=== PATIENT | female | born 1940 | race Caucasian/White ===

== ENCOUNTER 2019-12-14 09:25 | Emergency (ER) | payer MEDICARE ==
[~2019-12-14] VITALS: Ht 160 cm; Wt 72.6 kg
--- NOTE | 2019-12-14 09:51 | NUR ---
[facility] called to request transport for patient back to [facility] in [place], ETA 35-45 mins
--- OUTSIDE RECORDS SUMMARY | 2019-12-14 09:53 | XMS REPORT | Clinical Summary ---
Author Author [facility] Organization [facility] Address Unknown Phone Unavailable Care Team Providers Care Charging Plug Placer Name Role Phone Thor Gold MD PCP Allergies Comments Active Allergy Reactions Severity Noted Date Patient cannot recall allergy from 30 years ago Aspirin Unknown 10/21/2019 Reaction Fluticasone Unknown 10/21/2019 Furoate-Vilanterol Reaction Lisinopril Unknown 10/19/2019 Reaction Morphine GI 10/19/2019 Intolerance Phenobarbital Unknown 10/21/2019 Reaction Medications End Date Status Medication Sig Dispensed Refills Start Date Active metoprolol tartrate Take 50 mg by 0 (LOPRESSOR) 50 mg tablet mouth daily. Active montelukast (SINGULAIR) Take 10 mg by 0 10 mg tablet mouth nightly. Active omeprazole (PriLOSEC) 20 Take 20 mg by 0 MG capsule mouth 2 (two) times a day. Active traZODone (DESYREL) 50 MG Take 50 mg by 0 tablet mouth nightly. Active theophylline (TEDDY-24) Take 400 mg 0 100 MG 24 hr capsule by mouth daily. Active fluticasone Inhale 1 puff 0 propion-salmeteroL 2 (two) times (ADVAIR/ WIXELA INHUB) a day. 500-50 mcg/dose DISKUS Active tiotropium (SPIRIVA) 18 Place 1 0 mcg per inhalation capsule into capsule inhaler and inhale once daily. Active rivaroxaban (XARELTO) 10 Take 20 mg by 0 mg tablet mouth daily. Active hydroCHLOROthiazide Take 12.5 mg 0 (HYDRODIURIL) 12.5 MG by mouth tablet daily. 10/24/2019 Discontinued (Stop Taking at Discharge) predniSONE (DELTASONE) 5 Take 5 mg by 0 mg tablet mouth daily. 10/21/2019 Discontinued furosemide (LASIX) 20 mg Take 20 mg by 0 tablet mouth 2 (two) times a day. 10/21/2019 Discontinued potassium chloride Take 10 mEq 0 (K-DUR) 10 MEQ CR tablet by mouth 2 (two) times a day. 10/24/2019 Discontinued (Stop Taking at Discharge) albuterol (ACCUNEB) 2.5 Take 2.5 mg 0 mg /3 mL (0.083 %) by nebulizer solution nebulization every 4 (four) hours as needed for wheezing. 11/24/2019 furosemide (LASIX) 40 mg Take 1 tablet 30 tablet 0 tablet (40 mg total) 0 by mouth daily for 30 days. 11/23/2019 potassium chloride Take 1 60 capsule 0 02 (MICRO-K) 10 MEQ CR capsule (10 0 capsule mEq total) by mouth 2 (two) times a day for 30 days. 11/23/2019 benzonatate (TESSALON) Take 1 0 02 100 MG capsule capsule (100 0 mg total) by mouth every 6 (six) hours as needed for cough for up to 30 days. 11/24/2019 buPROPion XL (WELLBUTRIN Take 1 tablet 30 tablet 0 XL) 150 MG 24 hr tablet (150 mg 0 total) by mouth daily for 30 days. 11/23/2019 bisacodyL (DULCOLAX) 10 Insert 1 0 mg suppository suppository 0 (10 mg total) into the rectum daily as needed for constipation ((if with persistent constipation) ) for up to 30 days. 11/23/2019 ipratropium-albuteroL Take 3 mL by 0 10/24/19 2 (DUO-NEB) 0.5-2.5 mg/3 mL nebulization 0 nebulizer every 4 (four) hours as needed for wheezing for up to 30 days. 11/24/2019 losartan (COZAAR) 25 MG Take 1 tablet 30 tablet 0 tablet (25 mg total) 0 by mouth daily for 30 days. 11/23/2019 magnesium oxide (MAG-OX) Take 1 tablet 60 tablet 0 400 mg (241.3 mg (400 mg 0 magnesium) tablet total) by mouth 2 (two) times a day for 30 days. 11/23/2019 insulin GLARGINE (LANTUS) Inject 10 3 mL 0 100 unit/mL injection Units under 0 (vial) the skin nightly for 30 days. 11/23/2019 aspirin (ECOTRIN) 81 MG Take 1 tablet 30 tablet 0 enteric coated tablet (81 mg total) 0 by mouth daily for 30 days. 10/29/2019 methylPREDNISolone follow 21 tablet 0 02 (Medrol, Junito,) 4 mg package 0 tablet directions 11/30/2019 predniSONE (DELTASONE) 5 Take 1 tablet 30 tablet 0 mg tablet (5 mg total) 0 by mouth daily for 30 days. Active Problems Problem Noted Date Dehydration 10/20/2019 Tobacco dependence 10/20/2019 COPD with acute exacerbation 10/20/2019 Hypomagnesemia 10/20/2019 Hypotension 10/20/2019 Social problem 10/20/2019 Tachycardia 10/20/2019 Dyspnea 10/19/2019 Chest pain 10/19/2019 Encounters Care Team Description Date Type Specialty Bacilio Garcia MD Yerramadha, Muralidhar Reddy, MD COPD with acute exacerbation (HCC) (Prim grupo Dx); Dyspnea, unspecified type; Chronic obstructive pulmonary disease, unspecified COPD type (HCC); Social problem; Chest pain, unspecified type; Hypomagnesemia; Tobacco dependence; Dehydration; Hypotension, unspecified hypotension type; Tachycardia 10/19/2019 [facility] General Surgery - Encounter 10/24/2019 10/19/2019 Travel after 12/13/2018 Surgical History Surgery Date Site/Laterality Comments ABDOMINAL SURGERY APPENDECTOMY CHOLECYSTECTOMY Medical History Medical History Date Comments COPD (chronic obstructive pulmonary disease) (HCC) Asthma Diabetes mellitus (HCC) Hypertension Deep vein thrombosis (HCC) Social History Date Tobacco Use Types Packs/Day Years Used Current Every Day Smoker Cigarettes 1 Smokeless Tobacco: Never Used Drinks/Week oz/Week Comments Alcohol Use Not Currently Sex Assigned at Date Recorded Not on file Last Filed Vital Signs Reading Time Taken Comments Vital Sign 116/57 10/24/2019 4:45 PM CDT Blood Pressure 80 10/24/2019 7:42 PM CDT Pulse 36.6 C (97.8 F) 10/24/2019 4:45 PM CDT Temperature 16 10/24/2019 7:42 PM CDT Respiratory Rate 98% 10/24/2019 4:45 PM CDT Oxygen Saturation - - Inhaled Oxygen Concentration 45.4 kg (100 lb) 10/20/2019 12:00 AM CDT Weight 152.4 cm (5') 10/20/2019 12:00 AM CDT Height 19.53 10/20/2019 12:00 AM CDT Body Mass Index Plan of Treatment Health Maintenance Due Date Last Done Comments SHINGLES VACCINES (#1) 1992 65+ PNEUMOCOCCAL VACCINE 09/13/2007 (1 of 1 - PPSV23) INFLUENZA VACCINE 09/24/2019 Procedures Comments Procedure Name Priority Date/Time Associated Diag nosis POC GLUCOSE Routine 10/24/2019 4:45 PM CDT POC GLUCOSE Routine 10/24/2019 12:04 PM CDT POC GLUCOSE Routine 10/24/2019 6:20 AM CDT POC GLUCOSE Routine 10/23/2019 8:35 PM CDT POC GLUCOSE Routine 10/23/2019 4:18 PM CDT POC GLUCOSE Routine 10/23/2019 11:31 AM CDT POC GLUCOSE Routine 10/23/2019 7:16 AM CDT POC GLUCOSE Routine 10/23/2019 6:30 AM CDT ESTIMATED GFR Routine 10/23/2019 5:00 AM CDT BASIC METABOLIC PANEL Routine 10/23/2019 5:00 AM CDT POC GLUCOSE Routine 10/22/2019 8:40 PM CDT POC GLUCOSE Routine 10/22/2019 5:38 PM CDT POC GLUCOSE Routine 10/22/2019 12:27 PM CDT POC GLUCOSE Routine 10/22/2019 7:03 AM CDT POC GLUCOSE Routine 10/21/2019 9:00 PM CDT COVID-19 QUALITATIVE PCR Routine 10/21/2019 6:50 PM CDT POC GLUCOSE Routine 10/21/2019 5:35 PM CDT POC GLUCOSE Routine 10/21/2019 11:38 AM CDT POC GLUCOSE Routine 10/21/2019 5:49 AM CDT ESTIMATED GFR Routine 10/21/2019 4:58 AM CDT THYROID STIMULATING Routine 10/21/2019 HORMONE 4:58 AM CDT MAGNESIUM LEVEL Routine 10/21/2019 4:58 AM CDT BASIC METABOLIC PANEL Routine 10/21/2019 4:58 AM CDT POC GLUCOSE Routine 10/20/2019 9:01 PM CDT POC GLUCOSE Routine 10/20/2019 4:50 PM CDT TTE COMPLETE, WO Routine 10/20/2019 CONTRAST, W DOPPLER 2:50 PM CDT ([id number]) URINE CULTURE Routine 10/20/2019 2:24 PM CDT URINALYSIS SCREEN AND Routine 10/20/2019 MICROSCOPY, WITH REFLEX 2:23 PM CDT TO CULTURE POC GLUCOSE Routine 10/20/2019 10:37 AM CDT HEMOGLOBIN A1C Routine 10/20/2019 4:52 AM CDT MAGNESIUM LEVEL Routine 10/20/2019 4:52 AM CDT ESTIMATED GFR Routine 10/20/2019 4:52 AM CDT LIPID PANEL Routine 10/20/2019 4:52 AM CDT COMPREHENSIVE METABOLIC Routine 10/20/2019 PANEL 4:52 AM CDT HC COMPLETE BLD COUNT Routine 10/20/2019 W/AUTO DIFF 4:52 AM CDT LACTIC ACID LEVEL, SEPSIS Timed 10/19/2019 - NOW AND REPEAT 2X EVERY 11:40 PM CDT 3 HOURS TROPONIN Timed 10/19/2019 11:39 PM CDT TROPONIN Timed 10/19/2019 9:47 PM CDT BLOOD CULTURE, AEROBIC & Routine 10/19/2019 ANAEROBIC 8:45 PM CDT LACTIC ACID LEVEL, SEPSIS Timed 10/19/2019 - NOW AND REPEAT 2X EVERY 8:15 PM CDT 3 HOURS BLOOD CULTURE, AEROBIC & Routine 10/19/2019 ANAEROBIC 8:15 PM CDT XR CHEST 1 VW PORTABLE STAT 10/19/2019 6:51 PM CDT ESTIMATED GFR STAT 10/19/2019 6:49 PM CDT CREATINE KINASE, TOTAL STAT 10/19/2019 (CPK) 6:49 PM CDT TROPONIN STAT 10/19/2019 6:49 PM CDT B NATRIURETIC PEPTIDE STAT 10/19/2019 6:49 PM CDT MAGNESIUM LEVEL STAT 10/19/2019 6:49 PM CDT PHOSPHORUS LEVEL STAT 10/19/2019 6:49 PM CDT COMPREHENSIVE METABOLIC STAT 10/19/2019 PANEL 6:49 PM CDT PARTIAL THROMBOPLASTIN STAT 10/19/2019 TIME (PTT) 6:49 PM CDT PROTHROMBIN TIME WITH INR STAT 10/19/2019 6:49 PM CDT HC COMPLETE BLD COUNT STAT 10/19/2019 W/AUTO DIFF 6:49 PM CDT ECG 12-LEAD STAT 10/19/2019 6:40 PM CDT ECG ED PRELIMINARY Routine 10/19/2019 INTERPRETATION 6:38 PM CDT after 12/13/2018 Results * POC glucose (10/24/2019 4:45 PM CDT) Only the most recent of 19 results within the time period is included. [facility] POC glucose 184 (H) 65 - 99 mg/dL [place] Comment: AMINA SAUCEDA Computer Aided Design Operator Name: [facility] Device ID: [id number] Specimen Blood Performing Organization Address [facility] P jose Number [facility] DEPARTMENT [address] [place] [address] PATHOLOGY AND [address] * Estimated GFR (10/23/2019 5:00 AM CDT) Only the most recent of 4 results within the time period is included. [facility] Estimated GFR 88 mL/min/1.73 m2 [place] Comment: AMINA SAUCEDA [facility] Interpretation G1 >=90 Normal or high G2 60-89 Mildly decreased G3a 45-59 Mildly to moderately decreased G3b 30-44 Moderately to severely decreased G4 15-29 Severely decreased G5 <15 Kidney failure The eGFR was calculated using the Chronic Kidney Disease Epidemiology Collaboration (CKD-EPI) equation. Interpretation is based on recommendations of the National Kidney Foundation-Kidney Disease Outcomes Quality Initiative (NKF-KDOQI) published in 2014. Specimen Performing Organization Address [facility] P jose Number [address] [place] [address] PATHOLOGY AND [address] * Basic metabolic panel (10/23/2019 5:00 AM CDT) Only the most recent of 2 results within the time period is included. [facility] Sodium 137 135 - 148 mEq/L [facility] Potassium 4.5 3.5 - 5.0 mEq/L [facility] Chloride 96 (L) 98 - 112 mEq/L [facility] CO2 35 (H) 24 - 31 mEq/L [facility] Anion gap 6@ANIO (L) 7 - 15 mEq/L [facility] BUN 21 8 - 23 mg/dL [facility] Creatinine 0.60 0.50 - 0.90 mg/dL [facility] Glucose 189 (H) 65 - 99 mg/dL [facility] Calcium 9.9 8.8 - 10.2 mg/dL [facility] Specimen Blood Performing Organization Address City/[facility]/ZIP [facility] P jose Number [facility] DEPARTMENT OF [address] [place] [address]. [place] [phone] PATHOLOGY AND GENOMIC MEDICINE [address] * COVID-19 qualitative PCR (10/21/2019 6:50 PM CDT) Interpretation Negative results do not REESE preclude 2019-nCoV infection [facility] and should not be used as the HOSPITAL sole basis for treatment or other patient management decisions. Negative results must be combined with clinical observations, patient history, and epidemiological information. COVID-19 Not-Detected Not-Detected [facility] qualitative PCR [facility] result [facility]OSPITAL COVID-19 See link below for PDF Lab [facility] qualitative PCR ReportComment: Case Number: [facility] [id number] [facility] Specimen Nasopharyngeal swab Performing Organization Address City/[facility] P jose Number [facility] DEPARTMENT OF [address] [place] [address] PATHOLOGY AND GENOMIC MEDICINE [address] * Thyroid stimulating hormone (10/21/2019 4:58 AM CDT) TSH 2.97 0.27 - 4.20 uIU/mL [facility] Specimen Blood Performing Organization Address City/[facility] P jose Number [facility] DEPARTMENT OF [address] [place] [address]. [place] [phone] PATHOLOGY AND GENOMIC MEDICINE [address] [place] [address] * Magnesium level (10/21/2019 4:58 AM CDT) Only the most recent of 3 results within the time period is included. Magnesium 1.6 1.6 - 2.4 mg/dL [facility] Specimen Blood Performing Organization Address City/[facility]/ZIP [facility] P jose Number [facility] DEPARTMENT OF [address] [place] [address]. [place] [phone] PATHOLOGY AND GENOMIC MEDICINE [address] [place] [address] [facility] * Transthoracic Echocardiogram Complete, (w Contrast, Strain and 3D if needed) (10/20/2019 2:50 PM CDT) Velocity Ratio 0.35 m/s [facility] (V1/V2) IVS,d 1.32 cm [facility] EF 72.32 % [facility] LVPWD,d 1.35 cm [facility] AoV Mean PG 19.77 mmHg [facility] AV LVOT peak 4.26 mmHg [facility] gradient MV valve area p 3.81 cm2 [facility] 1/2 method E/A ratio 0.86 [facility] E wave 207.24 msec [facility] decelartion time LVOT Diam,S 1.95 cm [facility] LVOT area 2.98 cm2 [facility] LVOT Vmax 1.03 m/s [facility] LVOT VTI 0.27 m [facility] AoV Peak PG 34.84 mmHg [facility] MV Peak E Jose Miguel 1.09 m/s [facility] MV stenosis 57.81 ms [facility] pressure 1/2 time MV Peak A Jose Miguel 1.27 m/s [facility] LV Vol,s A2C 15.74 mL [facility] LV Vol,d A2C 59.69 mL [facility] LA Volume Index 28.83 mL/m2 [facility] AoV Area, Vmax 1.09 cm2 [facility] AoV Area, VTI 1.22 cm2 [facility] AoV Vmax 2.95 m/s [facility] LV,d 3.14 cm [facility] LV,s 1.88 cm [facility] LV Vol,d A4C 63.37 ml [facility] LV Vol,s A4C 21.22 ml [facility] TR Vpeak 2.48 mm/s [facility] MV E A ratio 0.86 [facility] RA pressure 5.00 mmHg [facility] TR pk grad 24.64 mmHg [facility] LA Vol 4C 28.00 ml [facility] RVSP 29.64 mmHg [facility] LV SYS VOL 10.83 ml [facility] LV GARIBAY VOL 39.13 ml [facility] LA diam s 3.70 cm [facility] LA area s A4C 13.32 cm2 [facility] LA Vol MOD A4C 28.21 ml [facility] LV SV Teich 2D 28.30 ml [facility] LVOT SI 58.54 ml/m2 [facility] AoV Cusp sep 1.41 [facility] Aortic Root 3.26 cm [facility] AoV Vmn 2.12 [facility] IVS s 2D 1.78 [facility] LA Ao Ratio 1.12 [facility] Mmode D E excurs 1.30 [facility] E f slope 0.05 [facility] E prime lat 0.07 [facility] E tayo sept 0.08 [facility] PV acc T slope 8.70 [facility] PV AT 88.49 msec [facility] MILLARD BP EF 70.00 % [facility] LA VOL 2C 43.00 ml [facility] AoV VTI 0.71 m [facility] LV EF,A2C 73.63 % [facility] LV EF,A4C 66.51 % [facility] LV EF,BP 69.57 % [facility] Александр Phoenix,d A2C 6.61 cm [facility] Александр [place],d A4C 6.84 cm [facility] Александр Phoenix,s A2C 4.68 cm [facility] Александр Phoenix,s A4C 5.01 cm [facility] LV SV,A2C 43.95 % [facility] LV SV,A4C 42.15 % [facility] LV Vol,d BP 61.80 ml [facility] LV Vol,s BP 18.80 nl [facility] LVOT Vmn 0.76 [facility] Pt Size 152.40 [facility] Pt Wt 45.36 [facility] LVOT mean grad 2.46 mmHg [facility] LVPW s PLAX 1.70 cm [facility] MV Decel slope 5.25 m/s2 [facility] Specimen Narrative Performed At [facility] Left ventricular systolic function i s normal. There is mild left ventricular viv ntric hypertrophy. Left Ventricular ejection fraction i s 60 - 65%. The mitral valve appears calcified. Moderate mitral annular calcificatio n. Mild to moderate aortic valve stenos is. Spectral Doppler shows impaired rela xation pattern of left ventricular diastolic filling. Stage I diastolic dysfunction. Performing Organization Address City/State/ZIP Code P jose Number [facility] [id number] [place] [address], * Urine culture (10/20/2019 2:24 PM CDT) Urine culture SEE COMMENTComment: [facility] Bacteriuria screen negative. [facility] Specimen Urine Performing Organization Address [facility] P jose Number [facility] DEPARTMENT OF [address] [place] [address] [place] [address] PATHOLOGY AND GENOMIC MEDICINE [address] * Urinalysis screen and microscopy, with reflex to culture (10/20/2019 2:23 PM CDT) Specimen site Clean catch [facility] Color, UA Straw [facility] Appearance, UA Clear [facility] Specific 1.006 1.001 - 1.035 [place] gravity, UA [facility] pH, UA 7.0 5.0 - 8.5 [facility] Protein, UA Negative Negative [facility] Glucose, UA Negative Negative [facility] Ketones, UA Negative Negative [facility] Bilirubin, UA Negative Negative [facility] Blood, UA Negative Negative [facility] Nitrite, UA Negative Negative [facility] Urobilinogen, Negative <2.0 [facility] Leukocyte Negative Negative [place] esterase, [facility] Epithelial Few Few /HPF [place] cells, [facility] WBC, UA 0-5 0 - 4 /HPF [facility] RBC, UA 0-5 0 - 5 /HPF [facility] Bacteria, UA None seen None seen [facility] Yeast, UA None seen [facility] Yeast with None seen [facility] Specimen Urine Performing Organization Address City/State/ZIP Code P jose Number [facility] DEPARTMENT OF [address] [place] [address] [place] [phone] PATHOLOGY AND GENOMIC MEDICINE [address] * CBC with platelet and differential (10/20/2019 4:52 AM CDT) Only the most recent of 2 results within the time period is included. WBC 6.49 4.50 - 11.00 k/uL [facility] RBC 3.56 (L) 4.20 - 5.50 m/uL [facility] HGB 10.6 (L) 12.0 - 16.0 g/dL [facility] HCT 32.5 (L) 37.0 - 47.0 % [facility] MCV 91.3 82.0 - 100.0 fL [facility] MCH 29.8 27.0 - 34.0 pg [facility] MCHC 32.6 31.0 - 37.0 g/dL [facility] RDW - SD 41.9 37.0 - 55.0 fL [facility] MPV 11.0 8.8 - 13.2 fL [facility] Platelet count 263 150 - 400 k/uL [facility] Nucleated RBC 0.00 /100 WBC [facility] Neutrophils 67.5 39.0 - 69.0 % [facility] Lymphocytes 18.6 (L) 25.0 - 45.0 % [facility] Monocytes 13.3 (H) 0.0 - 10.0 % [facility] Eosinophils 0.0 0.0 - 5.0 % [facility] Basophils 0.3 0.0 - 1.0 % [facility] Specimen Blood Performing Organization Address [facility] P jose Number [address] [place], [place] [address] PATHOLOGY AND GENOMIC MEDICINE [address] [place] [address] [facility] * Hemoglobin A1c (10/20/2019 4:52 AM CDT) Hemoglobin A1C 5.9 (H) 4.0 - 5.6 % [facility] Comment: [facility] HbA1c cutoffs for diagnosing [facility] diabetes: 4.0% - 5.6% = normal 5.7% - 6.4% = increased risk for diabetes (prediabetes)9 >=6.5% = diabetes9 Goals for glycemic control (ADA 2016) < 7.0% Target for non adults with diabetes. More or less stringent targets may be appropriate for individual patients. <7.5% Target for Children and adolescents with type 1 diabetes. Specimen Blood Performing Organization Address City/[facility] Code P jose Number [facility] DEPARTMENT OF [address] [place] [address] [place], [place] [address] PATHOLOGY AND GENOMIC MEDICINE [facility] [address] [place] [address] [facility] * Lipid panel (10/20/2019 4:52 AM CDT) Pathologist [facility] Cholesterol 143 <200 mg/dL [facility] Triglycerides 67 <150 mg/dL [facility] HDL cholesterol 61 >40 mg/dL [facility] LDL cholesterol 75Comment: Result obtained by <100 mg/dL [facility] direct LDL measurement [facility]id [facility] interpretation Comment: [facility] Total Cholesterol (mg/dL) [facility] <200 Desirable 200-239 Borderline-high >=240 High Triglycerides (mg/dL) <150 Normal 150-199 Borderline-high 200-499 High >=500 Very high HDL Cholesterol (mg/dL) <40 Low (male) <40 Low (female) LDL Cholesterol (mg/dL) <100 Optimal 100-129 Near or above optimal 130-159 Borderline-high 160-189 High >=190 Very high Risk Catergories that modify LDL goals. Risk Catergories LDL goal (mg/dL) CHD and CHD risk equivalent <100 (10-year risk >20%) Multiple (2+) risk factors <130 (10-year risk =<20%) 0-1 risk factors <160 (<10-year risk) Defining levels of lipids in metabolic syndrome Triglycerides >=150 mg/dL HDL Cholesterol Men <40 mg/dL Women <40 mg/dL Non-HDL cholesterol is a second target for therapy in persons with high triglycerides (>=200 mg/dL) Specimen Blood Performing Organization Address City/State/ZIP Code [place] [address] [place] [address] PATHOLOGY AND GENOMIC MEDICINE [facility] [address] [place] [address] [facility] * Comprehensive metabolic panel (10/20/2019 4:52 AM CDT) Only the most recent of 2 results within the time period is included. Sodium 140 135 - 148 mEq/L [facility] Potassium 3.7 3.5 - 5.0 mEq/L [facility] Chloride 99 98 - 112 mEq/L [facility] CO2 34 (H) 24 - 31 mEq/L [facility] Anion gap 7@ANIO 7 - 15 mEq/L [facility] BUN 16 8 - 23 mg/dL [facility] Creatinine 0.60 0.50 - 0.90 mg/dL [facility] Glucose 130 (H) 65 - 99 mg/dL [facility] Calcium 9.1 8.8 - 10.2 mg/dL [facility] Protein 5.7 (L) 6.3 - 8.3 g/dL [facility] Comment: [facility] [place] 4.6-7.0 g/dL 1 week 4.4-7.6 g/dL 7 months-1year 5.1-7.3 g/dL 1-2 years 5.6-7.5 g/dL >3 years 6.0-8.0 g/dL 18-150 6.3-8.3 g/dL Albumin 3.3 (L) 3.5 - 5.0 g/dL [facility] A/G ratio 1.4 0.7 - 3.8 [facility] Alkaline 69 35 - 104 U/L [place] phosphatase [facility] AST 21 10 - 35 U/L [facility] ALT 15 5 - 50 U/L [facility] Total bilirubin 0.2 0.0 - 1.2 mg/dL [facility] Specimen Blood Performing Organization Address City/[facility] P jose Number [facility] [address] [place] [address] PATHOLOGY AND GENOMIC MEDICINE [address] * Lactic acid level, SEPSIS - Now and repeat 2x every 3 hours (10/19/2019 11:40 PM CDT) Only the most recent of 2 results within the time period is included. Lactic acid 1.6 0.5 - 2.2 mmol/L [facility] Specimen Blood Performing Organization Address City/[facility] P jose Number [facility] [address] [place], [place] [address] PATHOLOGY AND GENOMIC MEDICINE [address] * Troponin (10/19/2019 11:39 PM CDT) Only the most recent of 3 results within the time period is included. Pathologist Brendan Troponin 0.009 0.000 - 0.040 ng/mL [place] Comment: AMINA SAUCEDA In patients suspected of [facility] having a myocardial infarction, along with all other appropriate clinical measures and actions including ECG and other diagnostics as appropriate, measure Ultra TnI at 0 hrs and at 3 hrs. Myocardial infarction VERY LIKELY The 0 hr TnI level is > 0.10 ng/mL Myocardial infarction LIKELY The 0 hr TnI level is > 0.04 ng/mL and 3 hr level is increased or decreased by at least 0.020 ng/mL Myocardial infarction VERY UNLIKELY Both the 0 hr and 3 hr TnI levels <= 0.04 ng/mL(within normal limits) OR 0 hr is > 0.04 ng/mL and 3 hr is increased OR decreased by less than 0.020 ng/mL Specimen Blood Performing Organization Address City/[facility] Code P jose Number [facility] [place] [address] [address] [place], [place] [address] PATHOLOGY AND GENOMIC MEDICINE [place] [address] [facility] * Blood culture, aerobic & anaerobic (10/19/2019 8:45 PM CDT) Only the most recent of 2 results within the time period is included. Pathologist [facility] Blood culture No growth after 5 days of [place] isolate incubation. [facility] Comment: HOSPITAL Specimen Information Specimen Source: Blood Specimen Site: Peripheral Specimen Blood - Peripheral Performing Organization Address City/State/ZIP Code P jose Number [facility] DEPARTMENT [address] [place] [address] PATHOLOGY AND GENOMIC MEDICINE [place] [facility] [address] [place] [address] HOSPITAL * XR Chest 1 Vw Portable (10/19/2019 6:51 PM CDT) Specimen Narrative Performed At EXAMINATION: XR CHEST 1 VW PORTABLE [facility] CLINICAL HISTORY: SOB COMPARISON: March 14, 2010 chest x- ray IMPRESSION: 1.Lungs are hyperinflated. There is rebeca e scarring at both costophrenic angles. 2.Interstitial prominence in the lungs has increased since the prior study which may be related to some edema. No consol idation noted. 3.Heart size is at the upper limits of normal. [id number] Procedure Note Hm Interface, Radiology Results Incoming - 10/19/2019 6:57 PM CDT EXAMINATION: XR CHEST 1 VW PORTABLE CLINICAL HISTORY: SOB COMPARISON: March 14, 2010 chest x-ray IMPRESSION: 1.Lungs are hyperinflated. There is some scarring at both costophrenic angles. 2.Interstitial prominence in the lungs h as increased since the prior study which may be related to some edema. No consolidation noted. 3.Heart size is at the upper limits of n ormal. [id number] Performing Organization Address City/[facility]/ZIP Code P jose Number [facility] [address] [place] [address] * Partial thromboplastin time, activated (10/19/2019 6:49 PM CDT) PTT 46.7 (H) 23.0 - 36.0 sec [place] Comment: [facility] CLEAR PTT therapeutic range for [facility] unfractionated heparin is 61.0-112.0 seconds which corresponds to Anti-Xa 0.3-0.7 U/ml. Specimen Blood Performing Organization Address City/State/ZIP Code [place] [address] [address] [place], [place] [address] PATHOLOGY AND GENOMIC MEDICINE [place] [facility] [place] [address] [place] [address] [facility] * Prothrombin time with INR (10/19/2019 6:49 PM CDT) Prothrombin 15.9 (H) 11.5 - 14.5 sec [place] time [facility] CLEAR [facility] INR 1.3 [place] Comment: AMINA SAUCEDA The International Normalized [facility] Ratio (INR) is a therapeutic monitoring tool for patients who are stable on oral anticoagulant therapy. An INR of 2.0-3.0 is suggested for deep vein thrombosis/pulmonary embolism. Specimen Blood Performing Organization Address City/State/ZIP Code P jose Number [facility] DEPARTMENT [place] [id number] [address] [place] [phone] PATHOLOGY AND GENOMIC MEDICINE [place] [address] [address] * Phosphorus level (10/19/2019 6:49 PM CDT) Phosphorus 2.8 2.4 - 4.5 mg/dL [facility] Specimen Blood Performing Organization Address City/State/ZIP Code P jose Number [facility] DEPARTMENT [place] [address] [address] [place] [phone] PATHOLOGY AND GENOMIC MEDICINE [place] [address] [address] * B natriuretic peptide (10/19/2019 6:49 PM CDT) BNP 87 0 - 100 pg/mL [facility] Specimen Blood Performing Organization Address City/[facility]/ZIP [facility] P jose Number [facility] DEPARTMENT [place] [address] [address] [place] [phone] PATHOLOGY AND GENOMIC MEDICINE [place] [address] [address] * Creatine kinase, total (CPK) (10/19/2019 6:49 PM CDT) Creatine kinase 58 26 - 192 U/L [facility] Specimen Blood Performing Organization Address City/[facility]/ZIP [facility] P jose Number [facility] DEPARTMENT [place] [address] [address] [place] [phone] PATHOLOGY AND GENOMIC MEDICINE [place] [address] [address] * ECG 12 lead (10/19/2019 6:40 PM CDT) Ventricular 104 [facility] rate Atrial rate 104 [facility] WA interval 120 [facility] QRSD interval 76 [facility] QT interval 322 [facility] QTC interval 423 [facility] P axis 1 67 [facility] QRS axis 1 21 [facility] T wave axis 62 [facility] EKG impression Sinus tachycardia-Left [facility] ventricular hypertrophy with repolarization abnormality-Cannot rule out Septal infarct (cited on or before 19-MAR-2010)-Abnormal ECG-In automated comparison with ECG of 19-MAR-2010 00:17,-Minimal criteria for Inferior infarct are now present- Specimen Narrative Performed At This result has an attachment that is n ot available. Performing Organization Address City/State/ZIP Code [facility] Number [facility] MUSE [address] [place] [address] * ECG ED Preliminary Interpretation - Not an Order (10/19/2019 6:38 PM CDT) Narrative Performed At Bacilio Garcia MD 10/20/2019 1:13 AM ECG ED Preliminary Interpretation - Not an Order Performed by: Bacilio Garcia MD Authorized by: Bacilio Garcia MD ECG reviewed by ED Physician in the abs ence of a building custodian: yes Interpretation: Interpretation: normal Quality: Tracing quality: Limited by artifac t Rate: ECG rate: 104 ECG rate assessment: tachycardic Rhythm: Rhythm: sinus tachycardia Ectopy: Ectopy: none QRS: QRS axis: Normal QRS intervals: Normal Conduction: Conduction: normal ST segments: ST segments: Non-specific T waves: T waves: non-specific Other findings: Other findings: LVH after 12/13/2018 Insurance Type Payer Benefit Subscriber ID Effective Phone Address Plan / Dates Group Medicare MEDICARE MEDICARE [id number] 2007-P [place], PART A AND resent [place] B Medicaid MEDICAID MEDICAID [id number] 2010-P resent Advance Directives For more information, please contact: [phone] 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
--- OUTSIDE RECORDS SUMMARY | 2019-12-14 09:54 | XMS REPORT | Continuity of Care Document ---
Author Author [facility] t Organization [facility] Address [address] [place] [address] Phone Unavailable Care Team Providers Care Sheep Farmer Name Role Phone Asif PEREZ, Thor PCP [phone] Jose PEREZ, Bacilio Attphys Jacquelyn PEREZ, Luis E Gillespie Attphys [phone] VERNA VALLADARES Admphys Unavailable Payers Payer Name Policy Type Policy Number Effective Date Expiration Date S mara MEDICAREMEDICARE PART A AND [id number] 2007-PresentYOVANI RIVERA [facility] [id number] 2007 00:00:00 Hugh Winter [id number] 2010-PresentMedicaid [id number] 2010 00:00:00 Hugh Winter Problems Condition Name Condition Details Condition Category Status Onset Date Resolution Date Last Treatment Date Treating Clinician Comments Source Dehydration Dehydration Disease Active 2019-10-20 00:00:00 Hugh Winter Tobacco dependence Tobacco dependence Disease Active 2019-10-20 00:00:0 0 Hugh Winter COPD with acute exacerbation COPD with acute exacerbation Disease Active 2019-10-20 00:00:00 Hugh Winter Hypomagnesemia Hypomagnesemia Disease Active 2019-10-20 00:00:00 Hugh Winter Hypotension Hypotension Disease Active 2019-10-20 00:00:00 Hugh Winter Social problem Social problem Disease Active 2019-10-20 00:00:00 Hugh Winter Tachycardia Tachycardia Disease Active 2019-10-20 00:00:00 Hugh Winter Dyspnea Dyspnea Disease Active 2019-10-19 00:00:00 Hugh Winter Chest pain Chest pain Disease Active 2019-10-19 00:00:00 Hugh Winter Allergies, Adverse Reactions, Alerts Allergy Name Allergy Type Status Severity Reaction(s) Onset Date Inacti ve Date Treating Clinician Comments Source lisinopril DA Active SV 2019-10-25 00:00:00 [facility] phenobarbital DA Active SV 2019-10-25 00:00:00 [facility] morphine DA Active SV 2019-10-25 00:00:00 [facility] aspirin DA Active SC 2019-10-25 00:00:00 [facility] fluticasone furoate DA Active SV 2019-10-25 00:00:00 [facility] vilanterol DA Active 2019-10-25 00:00:00 [facility] Aspirin Propensity to adverse reactions to drug Active Unknown Reaction 2019-10-21 00:00:00 Patient cannot recall allerg y from 30 years ago Hugh Winter Fluticasone Furoate-Vilanterol Propensity to adverse reactions to d rug Active Unknown Reaction 2019-10-21 00:00:00 Yovani Theodoreist Phenobarbital Propensity to adverse reactions to drug Active Unknown Reaction 2019-10-21 00:00:00 Hugh Meth odist Lisinopril Propensity to adverse reactions to drug Active Unknown Reaction 2019-10-19 00:00:00 Hugh Derek odist Morphine Propensity to adverse reactions to drug Active GI Intolerance 2019-10-19 00:00:00 Hugh Derek jeffist Social History Social Habit Start Date Stop Date Quantity Comments Source History of tobacco use Cigarette Smoker Hugh Winter [facility] Cigarettes smoked current (pack per day) - Reported 00:00:00 2019-10-22 00:00:00 Hugh Winter Tobacco use and exposure 2019-10-22 00:00:00 2019-10-22 00:00:00 Mat Winter Alcohol intake 2019-10-22 00:00:00 2019-10-22 00:00:00 Ex-drinker (fi nding) Hugh Winter Smoking Status Start Date Stop Date Source Current every day smoker 2019-10-22 00:00:00 Keshia sahakristina Winter Medications Ordered Medication Name Filled Medication Name Start Date Stop Da te Current Medication? Ordering Clinician Indication Dosage Frequency Signature (SIG) Comments Components Source predniSONE (DELTASONE) 5 mg tablet 2019-10-31 00:00:00 23:59:00 No 5mg QD Take 1 tablet (5 mg total) by mouth lizbeth y for 30 days. Hugh Winter furosemide (LASIX) 40 mg tablet 2019-10-25 00:00:00 23:59:00 No 40mg QD Take 1 tablet (40 mg total) by mouth daily for 30 days. Hugh Winter buPROPion XL (WELLBUTRIN XL) 150 MG 24 hr tablet 2019-10-25 00:00:00 2019-11-24 23:59:00 No 150mg QD Take 1 tablet (150 mg total) by mouth daily for 30 days. Hugh Winter losartan (COZAAR) 25 MG tablet 2019-10-25 00:00:00 2019-11-24 23 :59:00 No 25mg QD Take 1 tablet (25 mg total) by mouth daily for 30 days . Hugh Winter predniSONE (DELTASONE) 5 mg tablet 2019-10-24 20:09:45 00:00:00 No 5mg QD Take 5 mg by mouth daily. Hugh Winter albuterol (ACCUNEB) 2.5 mg /3 mL (0.083 %) nebulizer solutio n 2019-10-24 20:09:45 2019-10-24 00:00:00 No 2.5mg Q4H Take 2.5 mg by nebulization every 4 (four) hours as needed for wheezing. Tim Winter metoprolol tartrate (LOPRESSOR) 50 mg tablet 2019-10-24 20:09:41 Yes 50mg QD Take 50 mg by mouth daily. Hugh Winter montelukast (SINGULAIR) 10 mg tablet 2019-10-24 20:09:41 Ye s 10mg QD Take 10 mg by mouth nightly. Hugh briceno omeprazole (PriLOSEC) 20 MG capsule 2019-10-24 20:09:41 Yes 20mg Q.5D Take 20 mg by mouth 2 (two) times a day. Hugh Winter traZODone (DESYREL) 50 MG tablet 2019-10-24 20:09:41 Yes 50mg QD Take 50 mg by mouth nightly. Hugh Winter theophylline (TEDDY-24) 100 MG 24 hr capsule 2019-10-24 20:09:41 Yes 400mg QD Take 400 mg by mouth daily. Hugh Winter fluticasone propion-salmeteroL (ADVAIR/ WIXELA INHUB) 500-50 mcg/dose DISKUS 2019-10-24 20:09:41 Yes 1{puff} Q.5D Inhale 1 puf f 2 (two) times a day. Hugh Winter tiotropium (SPIRIVA) 18 mcg per inhalation capsule 2019-09 20:09:41 Yes 1{capsule} QD Place 1 capsule into inhaler and inhale once daily. Hugh Winter rivaroxaban (XARELTO) 10 mg tablet 2019-10-24 20:09:41 Yes 20mg QD Take 20 mg by mouth daily. Hugh Winter hydroCHLOROthiazide (HYDRODIURIL) 12.5 MG tablet 2019-10-24 20:09:41 Yes 12.5mg QD Take 12.5 mg by mouth daily. Hugh Winter potassium chloride (MICRO-K) 10 MEQ CR capsule 2 00:00:00 2019-11-23 23:59:00 No 10meq Q.5D Take 1 capsule (10 mEq total) by mouth 2 (two) times a day for 30 days. Hugh Winter benzonatate (TESSALON) 100 MG capsule 2019-10-24 00:00 :00 2019-11-23 23:59:00 No 100mg Q6H Take 1 capsule (100 mg total) by mouth every 6 (six) hours as needed for cough for up to 30 days. Yovani Winter bisacodyL (DULCOLAX) 10 mg suppository 2019-09-26 1 00:00:00 2019-11-23 23:59:00 No 10mg Q24H Insert 1 suppo sitory (10 mg total) into the rectum daily as needed for constipation ((if with persistent constipation)) for up to 30 days. Hugh Winter ipratropium-albuteroL (DUO-NEB) 0.5-2.5 mg/3 mL nebulizer 2019-10-24 00:00:00 2019-11-23 23:59:00 No 3mL Q4H Take 3 mL by nebulization every 4 (four) hours as needed for wheezing for up to 30 days. Hugh Winter magnesium oxide (MAG-OX) 400 mg (241.3 mg magnesium) tablet 2019-10-24 00:00:00 2019-11-23 23:59:00 No 400mg Q.5D Take 1 tablet (400 mg total) by mouth 2 (two) times a day for 30 days. Tim Winter insulin GLARGINE (LANTUS) 100 unit/mL injection (vial) 2019-10-24 00:00:00 2019-11-23 23:59:00 No 10U QD Injec t 10 Units under the skin nightly for 30 days. Hugh Winter aspirin (ECOTRIN) 81 MG enteric coated tablet 20 12-10-30 00:00:00 2019-11-23 23:59:00 No 81mg QD Take 1 tablet (81 mg total) by mouth daily for 30 days. Hugh Winter methylPREDNISolone (Medrol, Junito,) 4 mg tablet 12-10-30 00:00:00 2019-10-29 23:59:00 No follow package directions Hugh Winter furosemide (LASIX) 20 mg tablet 2019-10-21 20:14:30 00:00:00 No 20mg Q.5D Take 20 mg by mouth 2 (two) times a day. Hugh Winter potassium chloride (K-DUR) 10 MEQ CR tablet 2019 20:12:50 2019-10-21 00:00:00 No 10meq Q.5D Take 10 mEq by mouth 2 (two) ti mes a day. Hugh Winter Vital Signs Vital Name Observation Time Observation Value Comments Source Heart rate 2019-10-24 19:42:00 80 /min Hugh Winter Respiratory rate 2019-10-24 19:42:00 16 /min Yovani Winter Systolic blood pressure 2019-10-24 16:45:56 116 mm[Hg] Hugh Winter Diastolic blood pressure 2019-10-24 16:45:56 57 mm[Hg] Hugh Winter Body temperature 2019-10-24 16:45:56 36.56 Becki Yovani Winter Oxygen saturation in Arterial blood by Pulse oximetry 10-23 16:45:56 98 /min [facility] Body height 2019-10-20 00:00:00 152.4 cm Hugh Winter Body weight 2019-10-20 00:00:00 45.36 kg Hugh Theodoreist BMI 2019-10-20 00:00:00 19.53 kg/m2 Hugh Winter Procedures Procedure Date / Time Performed Performing Clinician Sourc e POC GLUCOSE 2019-10-24 16:45:00 Jose Akendra Hamletjatin [facility] POC GLUCOSE 2019-10-24 12:04:00 Jemgeorgekendra Luisherlinda [facility] POC GLUCOSE 2019-10-24 06:20:00 Jemgeorgekendra Luisherlinda [facility] POC GLUCOSE 2019-10-23 20:35:00 Jacquelyn Luisherlinda [facility] POC GLUCOSE 2019-10-23 16:18:00 Jacquelyn Luisherlinda [facility] POC GLUCOSE 2019-10-23 11:31:00 Jemgeorgekendra Hamletjatin [facility] POC GLUCOSE 2019-10-23 07:16:00 Jacquelyn Luisherlinda [facility] POC GLUCOSE 2019-10-23 06:30:00 Jacquelyn Hamletjatin [facility] BASIC METABOLIC PANEL 2019-10-23 05:00:00 [facility] ESTIMATED GFR 2019-10-23 05:00:00 [facility] POC GLUCOSE 2019-10-22 20:40:00 [facility]orgeVerna [facility] POC GLUCOSE 2019-10-22 17:38:00 [facility] POC GLUCOSE 2019-10-22 12:27:00 Jacquelyn Luisherlinda [facility] POC GLUCOSE 2019-10-22 07:03:00 [facility] POC GLUCOSE 2019-10-21 21:00:00 [facility] COVID-19 QUALITATIVE PCR 2019-10-21 18:50:00 Roman Valladares [facility] POC GLUCOSE 2019-10-21 17:35:00 Verna Valladares [facility] POC GLUCOSE 2019-10-21 11:38:00 Verna Valladares [facility] POC GLUCOSE 2019-10-21 05:49:00 Verna Valladares [facility] BASIC METABOLIC PANEL 2019-10-21 04:58:00 Verna Valladares [facility] MAGNESIUM LEVEL 2019-10-21 04:58:00 [facility] THYROID STIMULATING HORMONE 2019-10-21 04:58:00 Barbara Valladares [facility] ESTIMATED GFR 2019-10-21 04:58:00 [facility] POC GLUCOSE 2019-10-20 21:01:00 Verna Valladares [facility] POC GLUCOSE 2019-10-20 16:50:00 [facility] TTE COMPLETE, WO CONTRAST, W DOPPLER ([id number]) 2019-10-20 14:5 0:00 [facility] URINE CULTURE 2019-10-20 14:24:00 [facility] URINALYSIS SCREEN AND MICROSCOPY, WITH REFLEX TO CULTURE 14:23:00 [facility] POC GLUCOSE 2019-10-20 10:37:00 [facility] HC COMPLETE BLD COUNT W/AUTO DIFF 2019-10-20 04:52:00 Tera Garcia COMPREHENSIVE METABOLIC PANEL 2019-10-20 04:52:00 Bacilio Garcia LIPID PANEL 2019-10-20 04:52:00 Bacilio Garcia Meth odist ESTIMATED GFR 2019-10-20 04:52:00 Bacilio Garcia Meth odist MAGNESIUM LEVEL 2019-10-20 04:52:00 Jacquelyn Hamletmadieana Luis E Winter HEMOGLOBIN A1C 2019-10-20 04:52:00 Verna Valladares LACTIC ACID LEVEL, SEPSIS - NOW AND REPEAT 2X EVERY 3 HOURS 2019-10-19 23:40:00 Jacquelyn Luislisbethana Luis E Winter TROPONIN 2019-10-19 23:39:00 Bacilio Garcia TROPONIN 2019-10-19 21:47:00 Bacilio Garcia BLOOD CULTURE, AEROBIC & ANAEROBIC 2019-10-19 20:45:00 Mckayla Garcia BLOOD CULTURE, AEROBIC & ANAEROBIC 2019-10-19 20:15:00 Mckayla Garcia LACTIC ACID LEVEL, SEPSIS - NOW AND REPEAT 2X EVERY 3 HOURS 2019-10-19 20:15:00 Verna Valladares XR CHEST 1 VW PORTABLE 2019-10-19 18:51:17 Bacilio Garcia HC COMPLETE BLD COUNT W/AUTO DIFF 2019-10-19 18:49:00 Tera Garcia PROTHROMBIN TIME WITH INR 2019-10-19 18:49:00 Bacilio Garcia PARTIAL THROMBOPLASTIN TIME (PTT) 2019-10-19 18:49:00 eTra Garcia COMPREHENSIVE METABOLIC PANEL 2019-10-19 18:49:00 Bacilio Garcia PHOSPHORUS LEVEL 2019-10-19 18:49:00 Bacilio Garcia MAGNESIUM LEVEL 2019-10-19 18:49:00 Bacilio Garcia B NATRIURETIC PEPTIDE 2019-10-19 18:49:00 Bacilio Garcia TROPONIN 2019-10-19 18:49:00 Bacilio Garcia CREATINE KINASE, TOTAL (CPK) 2019-10-19 18:49:00 Bacilio Garcia ESTIMATED GFR 2019-10-19 18:49:00 Bacilio Garcia ECG 12-LEAD 2019-10-19 18:40:25 Bacilio Garcia ECG ED PRELIMINARY INTERPRETATION 2019-10-19 18:38:32 Tera Garcia Plan of Care Planned Activity Planned Date Details Comments Source Future Scheduled Test 2019-09-24 00:00:00 INFLUENZA VACCINE [code = INFLUENZA VACCINE] Hugh Winter Future Scheduled Test 2007-09-13 00:00:00 65+ PNEUMOCOCCAL V ACCINE (1 of 1 - PPSV23) [code = 65+ PNEUMOCOCCAL VACCINE (1 of 1 - PPSV23)] Hugh Winter Future Scheduled Test 1992 00:00:00 SHINGLES VACCINES (#1) [code = SHINGLES VACCINES (#1)] [facility] Encounters Start Date/Time End Date/Time Encounter Type Admission Type [facility] Care Department Encounter ID Source 2019-10-19 00:00:00 2019-10-24 00:00:00 Inpatient VERNA VALLADARES [facility] Darin [id number] Hugh Winter Results Test Description Test Time Test Comments Results Result Comments Source BASIC METABOLIC PANEL 2019-10-31 07:33:00 Test Item SODIUM (test code = NA) 142 mmol/L 136-145 N POTASSIUM (test code = K) 4.4 mmol/L 3.5-5.1 N CHLORIDE (test code = CL) 104.0 mmol/L 98-107 N CARBON DIOXIDE (test code = CO2) 32.0 mmol/L 21-32 N ANION GAP (test code = GAP) 10.4 10-20 N GLUCOSE (test code = GLU) 89 mg/dL 74-106 N BLOOD UREA NITROGEN (test code = BUN) 19 mg/dL 7-18 H GLOMERULAR FILTRATION RATE (test code = GFR) > 60 mL/min >=60 Estimated GFR by using Modified MDRD formula.Chronic kidney disease is defined as either kidney damageor GFR <60 mL/min/1.73 m2 for >3 months. CREATININE (test code = CREAT) 0.60 mg/dL 0.55-1.02 N Note change in reference range due to change in reagent. BUN/CREATININE RATIO (test code = BUN/CREA) 33.9 10-20 H CALCIUM (test code = CA) 8.8 mg/dL 8.5-10.1 N BASIC METABOLIC [id number] 07:22:00* Test Item Value Reference Range Interpretation Comments SODIUM (test code = NA) 142 mmol/L 136-145 N POTASSIUM (test code = K) 4.4 mmol/L 3.5-5.1 N CHLORIDE (test code = CL) 104.0 mmol/L 98-107 N CARBON DIOXIDE (test code = CO2) mmol/L 21-32 ANION GAP (test code = GAP) 10-20 GLUCOSE (test code = GLU) mg/dL 74-106 BLOOD UREA NITROGEN (test code = BUN) mg/dL 7-18 GLOMERULAR FILTRATION RATE (test code = GFR) mL/min >=60 CREATININE (test code = CREAT) mg/dL 0.55-1.02 BUN/CREATININE RATIO (test code = BUN/CREA) 10-20 CALCIUM (test code = CA) mg/dL 8.5-10.1 CBC W/AUTO [id number] 06:54:00* Test Item Value Reference Range Interpretation Comments WHITE BLOOD CELL (test code = WBC) 7.0 K/mm3 4.5-12.5 N RED BLOOD CELL (test code = RBC) 3.89 mill/mm3 3.7-5.2 N HEMOGLOBIN (test code = HGB) 11.2 gram/dL 11.5-15.5 L HEMATOCRIT (test code = HCT) 36.3 % 36.0-46.0 N MEAN CELL VOLUME (test code = MCV) 93.3 fL 80-98 N MEAN CELL HGB (test code = MCH) 28.8 picogram 27.0-33.0 N MEAN CELL HGB CONCETRATION (test code = MCHC) 30.9 gram/dL 33.0-36. 0 L RED CELL DISTRIBUTION WIDTH (test code = RDW) 13.4 % 11.6-16. 2 N RED CELL DISTRIBUTION WIDTH SD (test code = RDW-SD) 45.3 fL 37 .0-51.0 N PLATELET COUNT (test code = PLT) 191 K/mm3 150-450 N MEAN PLATELET VOLUME (test code = MPV) 11.7 fL 6.7-11.0 H NEUTROPHIL % (test code = NT%) 60.5 % 39.0-69.0 N IMMATURE GRANULOCYTE % (test code = IG%) 0.6 % 0.0-5.0 N LYMPHOCYTE % (test code = LY%) 20.9 % 25.0-55.0 L MONOCYTE % (test code = MO%) 17.9 % 0.0-10.0 H EOSINOPHIL % (test code = EO%) 0.0 % 0.0-5.0 N BASOPHIL % (test code = BA%) 0.1 % 0.0-1.0 N NUCLEATED RBC % (test code = NRBC%) 0.0 % 0-0 N NEUTROPHIL # (test code = NT#) 4.26 K/mm3 1.8-7.7 N IMMATURE GRANULOCYTE # (test code = IG#) 0.04 x10 3/uL 0-0.03 H LYMPHOCYTE # (test code = LY#) 1.47 K/mm3 1.0-5.0 N MONOCYTE # (test code = MO#) 1.26 K/mm3 0-0.8 H EOSINOPHIL # (test code = EO#) 0.00 K/mm3 0.0-0.5 N BASOPHIL # (test code = BA#) 0.01 K/mm3 0.0-0.2 N NUCLEATED RBC # (test code = NRBC#) 0.00 K/mm3 0.0-0.1 N MANUAL DIFF REQUIRED (test code = MDIFF) NO - XR ABD ACUTE [id number] 21:03:00 FAX: Lori Morfin MSN [place]: B St: [facility] FAX: Migue Zhao MD [phone] Name: PABLITO EUCEDA [facility] : 1940 Age/S: 79/F [address] [facility] Unit #: [id number] Loc: V.[facility] [place] [address] Phys: Lori Morfin MSN Acct: [id number] Dis Date: Status: ADM IN PHONE #: [phone] Exam Date: 10/29/20192044 FAX #: [phone] Reason: sob EXAMS: CPT CODE: [id number] XR ABD ACUTE W/CHEST [id number] REASON FOR EXAM: sob Exam Order Date: 10/29/2019 7:00 AM Ordering Clifford: Lori Morfin PROCEDURE: - XR ABD ACUTE W/CHEST COMPARISON: Chest x-ray October 25, 2019 FINDINGS: The lungs are hyperinflated but clear. There appear to be emphysematous changes in the lung apices There is no pleural effusion or pneumothorax. Pulmonary vascularity is within normal limits. Cardiomediastinal silhouette is normal in size for technique. The mediastinal contours are within normal limits. Severe levo scoliosis centered in the upper lumbar spine. Visualized abdomen d oes not demonstrate abnormal gaseous distention of the bowel. Moderate col onic stool burden. Prior cholecystectomy. IMPRESSION: No acute cardiopulmonary process. Persistent hyperin flation of the lungs may represent an air-trapping process. Location: [facility] Electronically Signed by Bowen Arizmendi MD on 10/28 at 2102 Reported and signed by: Bowen Arizmendi MD CC: Lori Morfin; Migue Zhao MD Technologist: Kristin Vela(R) Trnscrd Date/Time/By: 020 (2102) : By: [email or web address] Orig Print D/T: S: 10/29/2019 (2105) PAGE 1 Signed Report BASIC METABOLIC [id number] 11:31:00* Test Item Value Reference Range Interpretation Comments SODIUM (test code = NA) 138 mmol/L 136-145 N POTASSIUM (test code = K) 4.3 mmol/L 3.5-5.1 N CHLORIDE (test code = CL) 101.0 mmol/L 98-107 N CARBON DIOXIDE (test code = CO2) 31.0 mmol/L 21-32 N ANION GAP (test code = GAP) 10.3 10-20 N GLUCOSE (test code = GLU) 138 mg/dL 74-106 H BLOOD UREA NITROGEN (test code = BUN) 17 mg/dL 7-18 N GLOMERULAR FILTRATION RATE (test code = GFR) > 60 mL/min >=60 Estimated GFR by using Modified MDRD formula.Chronic kidney disease is defined as either kidney damageor GFR <60 mL/min/1.73 m2 for >3 months. CREATININE (test code = CREAT) 0.50 mg/dL 0.55-1.02 L Note change in reference range due to change in reagent. BUN/CREATININE RATIO (test code = BUN/CREA) 32.0 10-20 H CALCIUM (test code = CA) 9.0 mg/dL 8.5-10.1 N BASIC METABOLIC [id number] 11:26:00* Test Item Value Reference Range Interpretation Comments SODIUM (test code = NA) 138 mmol/L 136-145 N POTASSIUM (test code = K) 4.3 mmol/L 3.5-5.1 N CHLORIDE (test code = CL) 101.0 mmol/L 98-107 N CARBON DIOXIDE (test code = CO2) mmol/L 21-32 ANION GAP (test code = GAP) 10-20 GLUCOSE (test code = GLU) mg/dL 74-106 BLOOD UREA NITROGEN (test code = BUN) mg/dL 7-18 GLOMERULAR FILTRATION RATE (test code = GFR) mL/min >=60 CREATININE (test code = CREAT) mg/dL 0.55-1.02 BUN/CREATININE RATIO (test code = BUN/CREA) 10-20 CALCIUM (test code = CA) mg/dL 8.5-10.1 CBC W/AUTO [id number] 11:17:00* Test Item Value Reference Range Interpretation Comments WHITE BLOOD CELL (test code = WBC) 6.6 K/mm3 4.5-12.5 N RED BLOOD CELL (test code = RBC) 3.89 mill/mm3 3.7-5.2 N HEMOGLOBIN (test code = HGB) 11.4 gram/dL 11.5-15.5 L HEMATOCRIT (test code = HCT) 34.2 % 36.0-46.0 L MEAN CELL VOLUME (test code = MCV) 87.9 fL 80-98 N MEAN CELL HGB (test code = MCH) 29.3 picogram 27.0-33.0 N MEAN CELL HGB CONCETRATION (test code = MCHC) 33.3 gram/dL 33.0-36. 0 N RED CELL DISTRIBUTION WIDTH (test code = RDW) 13.1 % 11.6-16. 2 N RED CELL DISTRIBUTION WIDTH SD (test code = RDW-SD) 42.0 fL 37 .0-51.0 N PLATELET COUNT (test code = PLT) 222 K/mm3 150-450 N MEAN PLATELET VOLUME (test code = MPV) 11.3 fL 6.7-11.0 H NEUTROPHIL % (test code = NT%) 81.8 % 39.0-69.0 H IMMATURE GRANULOCYTE % (test code = IG%) 0.5 % 0.0-5.0 N LYMPHOCYTE % (test code = LY%) 6.4 % 25.0-55.0 L MONOCYTE % (test code = MO%) 11.1 % 0.0-10.0 H EOSINOPHIL % (test code = EO%) 0.0 % 0.0-5.0 N BASOPHIL % (test code = BA%) 0.2 % 0.0-1.0 N NUCLEATED RBC % (test code = NRBC%) 0.0 % 0-0 N NEUTROPHIL # (test code = NT#) 5.41 K/mm3 1.8-7.7 N IMMATURE GRANULOCYTE # (test code = IG#) 0.03 x10 3/uL 0-0.03 N LYMPHOCYTE # (test code = LY#) 0.42 K/mm3 1.0-5.0 L MONOCYTE # (test code = MO#) 0.73 K/mm3 0-0.8 N EOSINOPHIL # (test code = EO#) 0.00 K/mm3 0.0-0.5 N BASOPHIL # (test code = BA#) 0.01 K/mm3 0.0-0.2 N NUCLEATED RBC # (test code = NRBC#) 0.00 K/mm3 0.0-0.1 N COMPREHENSIVE METABOLIC [id number] 06:17:00* Test Item Value Reference Range Interpretation Comments SODIUM (test code = NA) 142 mmol/L 136-145 N POTASSIUM (test code = K) 4.2 mmol/L 3.5-5.1 N CHLORIDE (test code = CL) 102.0 mmol/L 98-107 N CARBON DIOXIDE (test code = CO2) 36.0 mmol/L 21-32 H ANION GAP (test code = GAP) 8.2 10-20 L GLUCOSE (test code = GLU) 164 mg/dL 74-106 H BLOOD UREA NITROGEN (test code = BUN) 17 mg/dL 7-18 N GLOMERULAR FILTRATION RATE (test code = GFR) > 60 mL/min >=60 Estimated GFR by using Modified MDRD formula.Chronic kidney disease is defined as either kidney damageor GFR <60 mL/min/1.73 m2 for >3 months. CREATININE (test code = CREAT) 0.60 mg/dL 0.55-1.02 N Note change in reference range due to change in reagent. BUN/CREATININE RATIO (test code = BUN/CREA) 29.9 10-20 H TOTAL PROTEIN (test code = PROT) 5.5 gram/dL 6.4-8.2 L ALBUMIN (test code = ALB) 2.7 g/dL 3.4-5.0 L GLOBULIN (test code = GLOB) 2.8 gram/dL 2.7-4.2 N ALBUMIN/GLOBULIN RATIO (test code = A/G) 1.0 0.75-1.50 N CALCIUM (test code = CA) 8.7 mg/dL 8.5-10.1 N BILIRUBIN TOTAL (test code = BILT) 0.20 mg/dL 0.0-1.0 N SGOT/AST (test code = AST) 15 IUnit/L 15-37 N SGPT/ALT (test code = ALT) 24 IUnit/L 12-78 N ALKALINE PHOSPHATASE TOTAL (test code = ALKP) 59 IUnit/L 45-117 N Note change in reference range due to change in reagent. [id number] 06:17:00* Test Item Value Reference Range Interpretation Comments MAGNESIUM (test code = MAG) 2.3 mg/dL 1.8-2.4 N COMPREHENSIVE METABOLIC [id number] 05:59:00* Test Item Value Reference Range Interpretation Comments SODIUM (test code = NA) 142 mmol/L 136-145 N POTASSIUM (test code = K) 4.2 mmol/L 3.5-5.1 N CHLORIDE (test code = CL) 102.0 mmol/L 98-107 N CARBON DIOXIDE (test code = CO2) mmol/L 21-32 ANION GAP (test code = GAP) 10-20 GLUCOSE (test code = GLU) mg/dL 74-106 BLOOD UREA NITROGEN (test code = BUN) mg/dL 7-18 GLOMERULAR FILTRATION RATE (test code = GFR) mL/min >=60 CREATININE (test code = CREAT) mg/dL 0.55-1.02 BUN/CREATININE RATIO (test code = BUN/CREA) 10-20 TOTAL PROTEIN (test code = PROT) gram/dL 6.4-8.2 ALBUMIN (test code = ALB) g/dL 3.4-5.0 GLOBULIN (test code = GLOB) gram/dL 2.7-4.2 ALBUMIN/GLOBULIN RATIO (test code = A/G) 0.75-1.50 CALCIUM (test code = CA) mg/dL 8.5-10.1 BILIRUBIN TOTAL (test code = BILT) mg/dL 0.0-1.0 SGOT/AST (test code = AST) IUnit/L 15-37 SGPT/ALT (test code = ALT) IUnit/L 12-78 ALKALINE PHOSPHATASE TOTAL (test code = ALKP) IUnit/L 45-117 [id number] 05:59:00* Test Item Value Reference Range Interpretation Comments MAGNESIUM (test code = MAG) mg/dL 1.8-2.4 CBC W/AUTO [id number] 05:47:00* Test Item Value Reference Range Interpretation Comments WHITE BLOOD CELL (test code = WBC) 5.9 K/mm3 4.5-12.5 N RED BLOOD CELL (test code = RBC) 3.65 mill/mm3 3.7-5.2 L HEMOGLOBIN (test code = HGB) 10.7 gram/dL 11.5-15.5 L HEMATOCRIT (test code = HCT) 33.3 % 36.0-46.0 L MEAN CELL VOLUME (test code = MCV) 91.2 fL 80-98 N MEAN CELL HGB (test code = MCH) 29.3 picogram 27.0-33.0 N MEAN CELL HGB CONCETRATION (test code = MCHC) 32.1 gram/dL 33.0-36. 0 L RED CELL DISTRIBUTION WIDTH (test code = RDW) 13.0 % 11.6-16. 2 N RED CELL DISTRIBUTION WIDTH SD (test code = RDW-SD) 42.5 fL 37 .0-51.0 N PLATELET COUNT (test code = PLT) 225 K/mm3 150-450 N MEAN PLATELET VOLUME (test code = MPV) 11.5 fL 6.7-11.0 H NEUTROPHIL % (test code = NT%) 76.3 % 39.0-69.0 H IMMATURE GRANULOCYTE % (test code = IG%) 0.5 % 0.0-5.0 N LYMPHOCYTE % (test code = LY%) 12.8 % 25.0-55.0 L MONOCYTE % (test code = MO%) 10.2 % 0.0-10.0 H EOSINOPHIL % (test code = EO%) 0.0 % 0.0-5.0 N BASOPHIL % (test code = BA%) 0.2 % 0.0-1.0 N NUCLEATED RBC % (test code = NRBC%) 0.0 % 0-0 N NEUTROPHIL # (test code = NT#) 4.48 K/mm3 1.8-7.7 N IMMATURE GRANULOCYTE # (test code = IG#) 0.03 x10 3/uL 0-0.03 N LYMPHOCYTE # (test code = LY#) 0.75 K/mm3 1.0-5.0 L MONOCYTE # (test code = MO#) 0.60 K/mm3 0-0.8 N EOSINOPHIL # (test code = EO#) 0.00 K/mm3 0.0-0.5 N BASOPHIL # (test code = BA#) 0.01 K/mm3 0.0-0.2 N NUCLEATED RBC # (test code = NRBC#) 0.00 K/mm3 0.0-0.1 N CBC W/AUTO [id number] 05:44:00* Test Item Value Reference Range Interpretation Comments WHITE BLOOD CELL (test code = WBC) K/mm3 4.5-12.5 RED BLOOD CELL (test code = RBC) mill/mm3 3.7-5.2 HEMOGLOBIN (test code = HGB) gram/dL 11.5-15.5 HEMATOCRIT (test code = HCT) % 36.0-46.0 MEAN CELL VOLUME (test code = MCV) fL 80-98 MEAN CELL HGB (test code = MCH) picogram 27.0-33.0 MEAN CELL HGB CONCETRATION (test code = MCHC) gram/dL 33.0-36. 0 RED CELL DISTRIBUTION WIDTH (test code = RDW) % 11.6-16. 2 RED CELL DISTRIBUTION WIDTH SD (test code = RDW-SD) fL 37 .0-51.0 PLATELET COUNT (test code = PLT) 225 K/mm3 150-450 N MEAN PLATELET VOLUME (test code = MPV) fL 6.7-11.0 NEUTROPHIL % (test code = NT%) % 39.0-69.0 IMMATURE GRANULOCYTE % (test code = IG%) % 0.0-5.0 LYMPHOCYTE % (test code = LY%) % 25.0-55.0 MONOCYTE % (test code = MO%) % 0.0-10.0 EOSINOPHIL % (test code = EO%) % 0.0-5.0 BASOPHIL % (test code = BA%) % 0.0-1.0 NEUTROPHIL # (test code = NT#) K/mm3 1.8-7.7 LYMPHOCYTE # (test code = LY#) K/mm3 1.0-5.0 MONOCYTE # (test code = MO#) K/mm3 0-0.8 EOSINOPHIL # (test code = EO#) K/mm3 0.0-0.5 BASOPHIL # (test code = BA#) K/mm3 0.0-0.2 [id number] 22:08:00* Test Item Value Reference Range Interpretation Comments GLUBED (test code = GLUBED) 123 mg/dL 74-106 H Performed by certified injection press operator at [facility] CBC W/AUTO [id number] 06:05:00* Test Item Value Reference Range Interpretation Comments WHITE BLOOD CELL (test code = WBC) 6.5 K/mm3 4.5-12.5 N RED BLOOD CELL (test code = RBC) 3.57 mill/mm3 3.7-5.2 L HEMOGLOBIN (test code = HGB) 10.4 gram/dL 11.5-15.5 L HEMATOCRIT (test code = HCT) 32.7 % 36.0-46.0 L MEAN CELL VOLUME (test code = MCV) 91.6 fL 80-98 N MEAN CELL HGB (test code = MCH) 29.1 picogram 27.0-33.0 N MEAN CELL HGB CONCETRATION (test code = MCHC) 31.8 gram/dL 33.0-36. 0 L RED CELL DISTRIBUTION WIDTH (test code = RDW) 13.0 % 11.6-16. 2 N RED CELL DISTRIBUTION WIDTH SD (test code = RDW-SD) 43.1 fL 37 .0-51.0 N PLATELET COUNT (test code = PLT) 211 K/mm3 150-450 N MEAN PLATELET VOLUME (test code = MPV) 11.1 fL 6.7-11.0 H NEUTROPHIL % (test code = NT%) 80.0 % 39.0-69.0 H IMMATURE GRANULOCYTE % (test code = IG%) 0.5 % 0.0-5.0 N LYMPHOCYTE % (test code = LY%) 10.3 % 25.0-55.0 L MONOCYTE % (test code = MO%) 9.2 % 0.0-10.0 N EOSINOPHIL % (test code = EO%) 0.0 % 0.0-5.0 N BASOPHIL % (test code = BA%) 0.0 % 0.0-1.0 N NUCLEATED RBC % (test code = NRBC%) 0.0 % 0-0 N NEUTROPHIL # (test code = NT#) 5.22 K/mm3 1.8-7.7 N IMMATURE GRANULOCYTE # (test code = IG#) 0.03 x10 3/uL 0-0.03 N LYMPHOCYTE # (test code = LY#) 0.67 K/mm3 1.0-5.0 L MONOCYTE # (test code = MO#) 0.60 K/mm3 0-0.8 N EOSINOPHIL # (test code = EO#) 0.00 K/mm3 0.0-0.5 N BASOPHIL # (test code = BA#) 0.00 K/mm3 0.0-0.2 N NUCLEATED RBC # (test code = NRBC#) 0.00 K/mm3 0.0-0.1 N MANUAL DIFF REQUIRED (test code = MDIFF) NO COMPREHENSIVE METABOLIC [id number] 14:58:00* Test Item Value Reference Range Interpretation Comments SODIUM (test code = NA) 139 mmol/L 136-145 N POTASSIUM (test code = K) 4.1 mmol/L 3.5-5.1 N CHLORIDE (test code = CL) 100.0 mmol/L 98-107 N CARBON DIOXIDE (test code = CO2) 31.0 mmol/L 21-32 N ANION GAP (test code = GAP) 12.1 10-20 N GLUCOSE (test code = GLU) 212 mg/dL 74-106 H BLOOD UREA NITROGEN (test code = BUN) 24 mg/dL 7-18 H GLOMERULAR FILTRATION RATE (test code = GFR) > 60 mL/min >=60 Estimated GFR by using Modified MDRD formula.Chronic kidney disease is defined as either kidney damageor GFR <60 mL/min/1.73 m2 for >3 months. CREATININE (test code = CREAT) 0.70 mg/dL 0.55-1.02 N Note change in reference range due to change in reagent. BUN/CREATININE RATIO (test code = BUN/CREA) 33.6 10-20 H TOTAL PROTEIN (test code = PROT) 6.4 gram/dL 6.4-8.2 N ALBUMIN (test code = ALB) 3.0 g/dL 3.4-5.0 L GLOBULIN (test code = GLOB) 3.4 gram/dL 2.7-4.2 N ALBUMIN/GLOBULIN RATIO (test code = A/G) 0.9 0.75-1.50 N CALCIUM (test code = CA) 9.2 mg/dL 8.5-10.1 N BILIRUBIN TOTAL (test code = BILT) 0.20 mg/dL 0.0-1.0 N SGOT/AST (test code = AST) 20 IUnit/L 15-37 N SGPT/ALT (test code = ALT) 28 IUnit/L 12-78 N ALKALINE PHOSPHATASE TOTAL (test code = ALKP) 88 IUnit/L 45-117 N Note change in reference range due to change in reagent. COMPREHENSIVE METABOLIC [id number] 14:47:00* Test Item Value Reference Range Interpretation Comments SODIUM (test code = NA) 139 mmol/L 136-145 N POTASSIUM (test code = K) 4.1 mmol/L 3.5-5.1 N CHLORIDE (test code = CL) 100.0 mmol/L 98-107 N CARBON DIOXIDE (test code = CO2) mmol/L 21-32 ANION GAP (test code = GAP) 10-20 GLUCOSE (test code = GLU) mg/dL 74-106 BLOOD UREA NITROGEN (test code = BUN) mg/dL 7-18 GLOMERULAR FILTRATION RATE (test code = GFR) mL/min >=60 CREATININE (test code = CREAT) mg/dL 0.55-1.02 BUN/CREATININE RATIO (test code = BUN/CREA) 10-20 TOTAL PROTEIN (test code = PROT) gram/dL 6.4-8.2 ALBUMIN (test code = ALB) g/dL 3.4-5.0 GLOBULIN (test code = GLOB) gram/dL 2.7-4.2 ALBUMIN/GLOBULIN RATIO (test code = A/G) 0.75-1.50 CALCIUM (test code = CA) mg/dL 8.5-10.1 BILIRUBIN TOTAL (test code = BILT) mg/dL 0.0-1.0 SGOT/AST (test code = AST) IUnit/L 15-37 SGPT/ALT (test code = ALT) IUnit/L 12-78 ALKALINE PHOSPHATASE TOTAL (test code = ALKP) IUnit/L 45-117 CBC W/AUTO [id number] 08:05:00* Test Item Value Reference Range Interpretation Comments WHITE BLOOD CELL (test code = WBC) 6.1 K/mm3 4.5-12.5 N RED BLOOD CELL (test code = RBC) 3.76 mill/mm3 3.7-5.2 N HEMOGLOBIN (test code = HGB) 11.0 gram/dL 11.5-15.5 L HEMATOCRIT (test code = HCT) 34.0 % 36.0-46.0 L MEAN CELL VOLUME (test code = MCV) 90.4 fL 80-98 N MEAN CELL HGB (test code = MCH) 29.3 picogram 27.0-33.0 N MEAN CELL HGB CONCETRATION (test code = MCHC) 32.4 gram/dL 33.0-36. 0 L RED CELL DISTRIBUTION WIDTH (test code = RDW) 13.0 % 11.6-16. 2 N RED CELL DISTRIBUTION WIDTH SD (test code = RDW-SD) 42.8 fL 37 .0-51.0 N PLATELET COUNT (test code = PLT) 230 K/mm3 150-450 RESULT VERIFIED BY REPEAT ANALYSIS MEAN PLATELET VOLUME (test code = MPV) 11.5 fL 6.7-11.0 H NEUTROPHIL % (test code = NT%) 81.5 % 39.0-69.0 H IMMATURE GRANULOCYTE % (test code = IG%) 0.5 % 0.0-5.0 N LYMPHOCYTE % (test code = LY%) 8.5 % 25.0-55.0 L MONOCYTE % (test code = MO%) 9.5 % 0.0-10.0 N EOSINOPHIL % (test code = EO%) 0.0 % 0.0-5.0 N BASOPHIL % (test code = BA%) 0.0 % 0.0-1.0 N NUCLEATED RBC % (test code = NRBC%) 0.0 % 0-0 N NEUTROPHIL # (test code = NT#) 4.98 K/mm3 1.8-7.7 N IMMATURE GRANULOCYTE # (test code = IG#) 0.03 x10 3/uL 0-0.03 N LYMPHOCYTE # (test code = LY#) 0.52 K/mm3 1.0-5.0 L MONOCYTE # (test code = MO#) 0.58 K/mm3 0-0.8 N EOSINOPHIL # (test code = EO#) 0.00 K/mm3 0.0-0.5 N BASOPHIL # (test code = BA#) 0.00 K/mm3 0.0-0.2 N NUCLEATED RBC # (test code = NRBC#) 0.00 K/mm3 0.0-0.1 N [id number] 07:11:00* Test Item Value Reference Range Interpretation Comments TROPONIN-I (test code = TROPI) <0.015 ng/mL 0-0.045 N COMMENTS TO SOCIAL WORKER PSYCHIATRIC: COLLECT 3 HOURS AFTER PREVIOUS SAMPLECOMPREHENSIVE METABOLIC [id number] 06:54:00* Test Item Value Reference Range Interpretation Comments SODIUM (test code = NA) 136 mmol/L 136-145 N POTASSIUM (test code = K) 4.1 mmol/L 3.5-5.1 N CHLORIDE (test code = CL) 99.0 mmol/L 98-107 N CARBON DIOXIDE (test code = CO2) 36.0 mmol/L 21-32 H ANION GAP (test code = GAP) 5.1 10-20 L GLUCOSE (test code = GLU) 152 mg/dL 74-106 H BLOOD UREA NITROGEN (test code = BUN) 25 mg/dL 7-18 H GLOMERULAR FILTRATION RATE (test code = GFR) > 60 mL/min >=60 Estimated GFR by using Modified MDRD formula.Chronic kidney disease is defined as either kidney damageor GFR <60 mL/min/1.73 m2 for >3 months. CREATININE (test code = CREAT) 0.70 mg/dL 0.55-1.02 N Note change in reference range due to change in reagent. BUN/CREATININE RATIO (test code = BUN/CREA) 35.6 10-20 H TOTAL PROTEIN (test code = PROT) 6.1 gram/dL 6.4-8.2 L ALBUMIN (test code = ALB) 2.8 g/dL 3.4-5.0 L GLOBULIN (test code = GLOB) 3.3 gram/dL 2.7-4.2 N ALBUMIN/GLOBULIN RATIO (test code = A/G) 0.8 0.75-1.50 N CALCIUM (test code = CA) 9.3 mg/dL 8.5-10.1 N BILIRUBIN TOTAL (test code = BILT) 0.20 mg/dL 0.0-1.0 N SGOT/AST (test code = AST) 18 IUnit/L 15-37 N SGPT/ALT (test code = ALT) 25 IUnit/L 12-78 N ALKALINE PHOSPHATASE TOTAL (test code = ALKP) 63 IUnit/L 45-117 N Note change in reference range due to change in reagent. [id number] 06:54:00* Test Item Value Reference Range Interpretation Comments MAGNESIUM (test code = MAG) 2.1 mg/dL 1.8-2.4 N COMPREHENSIVE METABOLIC [id number] 06:42:00* Test Item Value Reference Range Interpretation Comments SODIUM (test code = NA) 136 mmol/L 136-145 N POTASSIUM (test code = K) 4.1 mmol/L 3.5-5.1 N CHLORIDE (test code = CL) 99.0 mmol/L 98-107 N CARBON DIOXIDE (test code = CO2) mmol/L 21-32 ANION GAP (test code = GAP) 10-20 GLUCOSE (test code = GLU) mg/dL 74-106 BLOOD UREA NITROGEN (test code = BUN) mg/dL 7-18 GLOMERULAR FILTRATION RATE (test code = GFR) mL/min >=60 CREATININE (test code = CREAT) mg/dL 0.55-1.02 BUN/CREATININE RATIO (test code = BUN/CREA) 10-20 TOTAL PROTEIN (test code = PROT) gram/dL 6.4-8.2 ALBUMIN (test code = ALB) g/dL 3.4-5.0 GLOBULIN (test code = GLOB) gram/dL 2.7-4.2 ALBUMIN/GLOBULIN RATIO (test code = A/G) 0.75-1.50 CALCIUM (test code = CA) mg/dL 8.5-10.1 BILIRUBIN TOTAL (test code = BILT) mg/dL 0.0-1.0 SGOT/AST (test code = AST) IUnit/L 15-37 SGPT/ALT (test code = ALT) IUnit/L 12-78 ALKALINE PHOSPHATASE TOTAL (test code = ALKP) IUnit/L 45-117 [id number] 06:42:00* Test Item Value Reference Range Interpretation Comments MAGNESIUM (test code = MAG) mg/dL 1.8-2.4 [id number] 20:29:00* Test Item Value Reference Range Interpretation Comments GLUBED (test code = GLUBED) 150 mg/dL 74-106 H Performed by certified injection press operator at [facility] [id number] 17:06:00* Test Item Value Reference Range Interpretation Comments TROPONIN-I (test code = TROPI) <0.015 ng/mL 0-0.045 N [id number] TO SOCIAL WORKER PSYCHIATRIC: COLLECT 3 HOURS AFTER PREVIOUS [id number] 14:52:00* Test Item Value Reference Range Interpretation Comments D-DIMER (test code = DDIMER) 467.00 ng/mLFEU 0-500 N Clinical Cut-off value for D-Dimer is 500 ng/mL FEU. Comment: The [employer] D-Dimer assay is intended for use asan aid in the diagnosis of venous thromboembolism (VTE)[deep vein thrombosis (DVT) or pulmonary embolism (PE)].The measurement of D-Dimer should not be used as an aid inthe diagnosis of VTE, in patient with: -Therapeutic dose anticoagulant therapy for >24 hours -Fibrinolytic therapy within previous 7 days -Trauma or surgery within previous 4 weeks -Disseminated malignancies -Aortic aneurysm -Sepsis, severe infections, pneumonia, severe skin infections -Liver cirrhosis - COVID 19 INHOUSE [id number] 13:42:00* Test Item Value Reference Range Interpretation Comments COVID 19 INHOUSE AG (test code = [id number]) NEGATIVE B-TYPE NATRIURETIC [id number] 10:45:00* Test Item Value Reference Range Interpretation Comments B-TYPE NATRIURETIC PEPTIDE (test code = BNP) 44.45 pgram/mL 0-100 N PROTHROMBIN [id number] 10:12:00* Test Item Value Reference Range Interpretation Comments PROTHROMBIN TIME PATIENT (test code = PTP) 17.5 seconds 9.0-14.0 H INTERNATIONAL NORMAL RATIO (test code = INR) 1.5 0.8-1.2 H The therapeutic range for oral anticoagulant therapy formost indications is an international normalized ratio (INR)of between 2.0 and 3.0. The recommended therapeutic INRrange for various clinical situations is listed below: Clinical Situation INR range Pulmonary e mbolism treatment (2.0-3.0)Venous thrombosis treatmentVenous thrombosis prophylaxis (high risk surgery)Prevention of systemic embolism from: Acute myocardial infarction Valvular heart disease Atrial fibrillation Mechanical prosthetic heart valves (2.5-3.5) IS PATIENT ON ANTICOAGULANTS? NTHROMBOPLASTIN TIME [id number] 10:12:00* Test Item Value Reference Range Interpretation Comments THROMBOPLASTIN TIME PARTIAL (test code = PTT) 42.7 seconds 23.0-37. 0 H IS PATIENT ON ANTICOAGULANTS? NBASIC METABOLIC [id number] 10:05:00* Test Item Value Reference Range Interpretation Comments SODIUM (test code = NA) 134 mmol/L 136-145 L POTASSIUM (test code = K) 4.5 mmol/L 3.5-5.1 N CHLORIDE (test code = CL) 95.0 mmol/L 98-107 L CARBON DIOXIDE (test code = CO2) 33.0 mmol/L 21-32 H ANION GAP (test code = GAP) 10.5 10-20 N GLUCOSE (test code = GLU) 119 mg/dL 74-106 H BLOOD UREA NITROGEN (test code = BUN) 27 mg/dL 7-18 H GLOMERULAR FILTRATION RATE (test code = GFR) > 60 mL/min >=60 Estimated GFR by using Modified MDRD formula.Chronic kidney disease is defined as either kidney damageor GFR <60 mL/min/1.73 m2 for >3 months. CREATININE (test code = CREAT) 0.50 mg/dL 0.55-1.02 L Note change in reference range due to change in reagent. BUN/CREATININE RATIO (test code = BUN/CREA) 52.2 10-20 H CALCIUM (test code = CA) 9.5 mg/dL 8.5-10.1 N [id number] 10:05:00* Test Item Value Reference Range Interpretation Comments TROPONIN-I (test code = TROPI) <0.015 ng/mL 0-0.045 N BASIC METABOLIC [id number] 09:57:00* Test Item Value Reference Range Interpretation Comments SODIUM (test code = NA) 134 mmol/L 136-145 L POTASSIUM (test code = K) 4.5 mmol/L 3.5-5.1 N CHLORIDE (test code = CL) 95.0 mmol/L 98-107 L CARBON DIOXIDE (test code = CO2) mmol/L 21-32 ANION GAP (test code = GAP) 10-20 GLUCOSE (test code = GLU) mg/dL 74-106 BLOOD UREA NITROGEN (test code = BUN) mg/dL 7-18 GLOMERULAR FILTRATION RATE (test code = GFR) mL/min >=60 CREATININE (test code = CREAT) mg/dL 0.55-1.02 BUN/CREATININE RATIO (test code = BUN/CREA) 10-20 CALCIUM (test code = CA) mg/dL 8.5-10.1 [id number] 09:57:00* Test Item Value Reference Range Interpretation Comments TROPONIN-I (test code = TROPI) ng/mL 0-0.045 BASIC METABOLIC [id number] 09:57:00* Test Item Value Reference Range Interpretation Comments SODIUM (test code = NA) 134 mmol/L 136-145 L POTASSIUM (test code = K) 4.5 mmol/L 3.5-5.1 N CHLORIDE (test code = CL) 95.0 mmol/L 98-107 L CARBON DIOXIDE (test code = CO2) mmol/L 21-32 ANION GAP (test code = GAP) 10-20 GLUCOSE (test code = GLU) mg/dL 74-106 BLOOD UREA NITROGEN (test code = BUN) mg/dL 7-18 GLOMERULAR FILTRATION RATE (test code = GFR) mL/min >=60 CREATININE (test code = CREAT) mg/dL 0.55-1.02 BUN/CREATININE RATIO (test code = BUN/CREA) 10-20 CALCIUM (test code = CA) mg/dL 8.5-10.1 [id number] 09:57:00* Test Item Value Reference Range Interpretation Comments TROPONIN-I (test code = TROPI) ng/mL 0-0.045 BASIC METABOLIC [id number] 09:57:00* Test Item Value Reference Range Interpretation Comments SODIUM (test code = NA) 134 mmol/L 136-145 L POTASSIUM (test code = K) 4.5 mmol/L 3.5-5.1 N CHLORIDE (test code = CL) 95.0 mmol/L 98-107 L CARBON DIOXIDE (test code = CO2) mmol/L 21-32 ANION GAP (test code = GAP) 10-20 GLUCOSE (test code = GLU) mg/dL 74-106 BLOOD UREA NITROGEN (test code = BUN) mg/dL 7-18 GLOMERULAR FILTRATION RATE (test code = GFR) mL/min >=60 CREATININE (test code = CREAT) mg/dL 0.55-1.02 BUN/CREATININE RATIO (test code = BUN/CREA) 10-20 CALCIUM (test code = CA) mg/dL 8.5-10.1 [id number] 09:57:00* Test Item Value Reference Range Interpretation Comments TROPONIN-I (test code = TROPI) ng/mL 0-0.045 CBC W/O [id number] 09:53:00* Test Item Value Reference Range Interpretation Comments WHITE BLOOD CELL (test code = WBC) 9.8 K/mm3 4.5-12.5 N RED BLOOD CELL (test code = RBC) 4.20 mill/mm3 3.7-5.2 N HEMOGLOBIN (test code = HGB) 12.2 gram/dL 11.5-15.5 N HEMATOCRIT (test code = HCT) 37.7 % 36.0-46.0 N MEAN CELL VOLUME (test code = MCV) 89.8 fL 80-98 N MEAN CELL HGB (test code = MCH) 29.0 picogram 27.0-33.0 N MEAN CELL HGB CONCETRATION (test code = MCHC) 32.4 gram/dL 33.0-36. 0 L RED CELL DISTRIBUTION WIDTH (test code = RDW) 12.8 % 11.6-16. 2 N PLATELET COUNT (test code = PLT) 286 K/mm3 150-450 N MEAN PLATELET VOLUME (test code = MPV) 11.2 fL 6.7-11.0 H CBC W/O [id number] 09:50:00* Test Item Value Reference Range Interpretation Comments WHITE BLOOD CELL (test code = WBC) K/mm3 4.5-12.5 RED BLOOD CELL (test code = RBC) mill/mm3 3.7-5.2 HEMOGLOBIN (test code = HGB) 12.2 gram/dL 11.5-15.5 N HEMATOCRIT (test code = HCT) 37.7 % 36.0-46.0 N MEAN CELL VOLUME (test code = MCV) fL 80-98 MEAN CELL HGB (test code = MCH) picogram 27.0-33.0 MEAN CELL HGB CONCETRATION (test code = MCHC) gram/dL 33.0-36. 0 RED CELL DISTRIBUTION WIDTH (test code = RDW) % 11.6-16. 2 PLATELET COUNT (test code = PLT) 286 K/mm3 150-450 N MEAN PLATELET VOLUME (test code = MPV) fL 6.7-11.0 - XR CHEST 1 [id number] 08:47:00 FAX: Tulio Bravo [phone] [place]: [address] St: REG Name: Harpreet ZOHREHPABLITO [facility] : [birth year] Age/S: 79/F Ninfa Salinasrell Oliveira Unit #: [id number] Loc: [place] [address] Phys: Tulio Bravo MD Acct: [id number] Dis Date: Status: REG ER PHONE #: [phone] Exam Date: 10/25/2019 0830 FAX #: [phone] Reason: Shortness of Breath EXAMS: CPT CODE: [id number] XR CHEST 1 V 32804 REASON FOR EXAM: Shortness of Breath Exam Order Date: 10/25/2019 8:11 AM Ordering Clifford: Tulio Bravo MD PROCEDURE: - XR CHEST 1 V COMPARISON: None FINDINGS: The lungs are clear. Scatt ered areas of slightly increased interstitial opacities likely reflects sc arring. There is no pleural effusion or pneumothorax. Pulmonary vascularit y is within normal limits. Cardiomediastinal silhouette is n ormal in size for technique. The mediastinal contours are within normal li mits. Musculoskeletal structures are within normal limits. The visualized upper abdomen is within normal limits. IMPRESSION: No acute cardiopulmonary process. Loc ation: [facility] a t 0847 Reported and signed by: Daryn Quintero M.D. CC: Tulio Bravo MD Technologist: Angela Ball RT(R); Saumya Barillas RT(R) Trnscrd Date/Time/By: 020 (0847) : By: [email or web address] Orig Print D/T: S: 10/25/2019 (0857) PAGE 1 Signed Report Blood culture, aerobic & [id number] 01:33:06* Test Item Value Reference Range Interpretation Comments Blood culture isolate (test code = 600-7) No growth after 5 days of incubation. Specimen InformationSpecimen Source: BloodSpecimen Site: Peripheral [facility] [id number] 16:56:19* Test Item Value Reference Range Interpretation Comments POC glucose (test code = 94191-2) 184 mg/dL 65-99 H Magistrate Name: Chance Feldman ID: [id number] Lab Interpretation (test code = 36160-4) Abnormal [facility] metabolic [id number] 06:10:28* Test Item Value Reference Range Interpretation Comments Sodium (test code = 2951-2) 137 135- 148 mEq/L Potassium (test code = 2823-3) 4.5 3.5- 5.0 mEq/L Chloride (test code = 2075-0) 96 98- 112 mEq/L L CO2 (test code = 2027-9) 35 24- 31 mEq/L H Anion gap (test code = 10097-5) 6@ANIO 7- 15 mEq/L L BUN (test code = 3094-0) 21 mg/dL 8-23 Creatinine (test code = 2160-0) 0.60 mg/dL 0.5-0.9 Glucose (test code = 2345-7) 189 mg/dL 65-99 H Calcium (test code = 92501-4) 9.9 mg/dL 8.8-10.2 Lab Interpretation (test code = 74942-3) Abnormal [facility] MethodistEstimated [id number] 06:10:28* Test Item Value Reference Range Interpretation Comments Estimated GFR (test code = 5488) 88 mL/min/1.73 m2 Catergory Units InterpretationG1 >=90 Normal or highG2 60-89 Mildly qbpudeerxB3j 45-59 Mildly to moderately zlgyqllmeH8w 30-44 Moderately to severely decreasedG4 15-29 Severely decreasedG5 <15 Kidney failureThe eGFR was calculated using the Chronic Kidney Disease Epidemiology Collaboration (CKD-EPI) equation. Interpretation is based on recommendations of the National Kidney Foundation-Kidney Disease Outcomes Quality Initiative (NKF-KDOQI) published in 2014. Hugh WinterCOVID-19 qualitative [id number] 03:21:15* Test Item Value Reference Range Interpretation Comments Interpretation (test code = 3866750) Negative results do not preclude 2019-nCoV infection and should not be used as the sole basis for treatment or other patient management decisions. Negative results must be combined with clinical observations, patient history, and epidemiological information. COVID-19 qualitative PCR result (test code = 76830-0) Not-Detect ed Not-Detected COVID-19 qualitative PCR (test code = 7070) See link below for P DF Lab Report Hugh MethodistTransthoracic Echocardiogram Complete, (w Contrast, Strain and 3D if needed)2019-10-21 10:16:42* Test Item Value Reference Range Interpretation Comments Velocity Ratio (V1/V2) (test code = 4689) 0.35 m/s IVS,d (test code = 4062133092) 1.32 cm EF (test code = 6479140709) 72.32 % LVPWD,d (test code = 2951338278) 1.35 cm AoV Mean PG (test code = 8862575650) 19.77 mmHg AV LVOT peak gradient (test code = 4566624696) 4.26 mmHg MV valve area p 1/2 method (test code = 9366889661) 3.81 cm2 E/A ratio (test code = 6238660479) 0.86 E wave decelartion time (test code = 2032349696) 207.24 msec LVOT Diam,S (test code = 4981811881) 1.95 cm LVOT area (test code = 4005998444) 2.98 cm2 LVOT Vmax (test code = 3420753108) 1.03 m/s LVOT VTI (test code = 4738861621) 0.27 m AoV Peak PG (test code = 6018530986) 34.84 mmHg MV Peak E Jose Miguel (test code = 5127124546) 1.09 m/s MV stenosis pressure 1/2 time (test code = 6299072351) 57.81 ms MV Peak A Jose Miguel (test code = 2928071643) 1.27 m/s LV Vol,s A2C (test code = 4716554236) 15.74 mL LV Vol,d A2C (test code = 1945622147) 59.69 mL LA Volume Index (test code = 8856555855) 28.83 mL/m2 AoV Area, Vmax (test code = 9295921019) 1.09 cm2 AoV Area, VTI (test code = 6460942465) 1.22 cm2 AoV Vmax (test code = 2314658425) 2.95 m/s LV,d (test code = 8318057089) 3.14 cm LV,s (test code = 5446310624) 1.88 cm LV Vol,d A4C (test code = 7711234660) 63.37 ml LV Vol,s A4C (test code = 7631898951) 21.22 ml TR Vpeak (test code = 2113920259) 2.48 mm/s MV E A ratio (test code = 3901212449) 0.86 RA pressure (test code = 2619411348) 5.00 mmHg TR pk grad (test code = 8925703407) 24.64 mmHg LA Vol 4C (test code = 2112406672) 28.00 ml RVSP (test code = 0947765420) 29.64 mmHg LV SYS VOL (test code = 8447369733) 10.83 ml LV GARIBAY VOL (test code = 7654786411) 39.13 ml LA diam s (test code = 6396528882) 3.70 cm LA area s A4C (test code = 3232135076) 13.32 cm2 LA Vol MOD A4C (test code = 8276747584) 28.21 ml LV SV Teich 2D (test code = 9402463612) 28.30 ml LVOT SI (test code = 4340497221) 58.54 ml/m2 AoV Cusp sep (test code = 9915988492) 1.41 Aortic Root (test code = 7012640147) 3.26 cm AoV Vmn (test code = 3496265505) 2.12 IVS s 2D (test code = 2146044358) 1.78 LA Ao Ratio Mmode (test code = 8854933259) 1.12 D E excurs (test code = 8352851903) 1.30 E f slope (test code = 7134845319) 0.05 E prime lat (test code = 4419844175) 0.07 E tayo sept (test code = 5739111934) 0.08 PV acc T slope (test code = 6941601569) 8.70 PV AT (test code = 9890656111) 88.49 msec MILLARD BP EF (test code = 7551251901) 70.00 % LA VOL 2C (test code = 6245630662) 43.00 ml AoV VTI (test code = 4521604038) 0.71 m LV EF,A2C (test code = 1161274212) 73.63 % LV EF,A4C (test code = 6174662456) 66.51 % LV EF,BP (test code = 8279181543) 69.57 % Александр Imbler,d A2C (test code = 5450284374) 6.61 cm Александр Imbler,d A4C (test code = 7621025921) 6.84 cm Александр Imbler,s A2C (test code = 1982707615) 4.68 cm Александр Imbler,s A4C (test code = 9272460916) 5.01 cm LV SV,A2C (test code = 3602839297) 43.95 % LV SV,A4C (test code = 6328603464) 42.15 % LV Vol,d BP (test code = 9222621262) 61.80 ml LV Vol,s BP (test code = 8723733299) 18.80 nl LVOT Vmn (test code = 5757885858) 0.76 Pt Size (test code = 9070293474) 152.40 Pt Wt (test code = 9143773811) 45.36 LVOT mean grad (test code = 6391941272) 2.46 mmHg LVPW s PLAX (test code = 7133511420) 1.70 cm MV Decel slope (test code = 4378468819) 5.25 m/s2 JOVITA (test code = JOVITA) Left ventricular systolic function is normal. There is mild left ventricular concentric hypertrophy. Left Ventricular ejection fraction is 60 - 65%. The mitral valve appears calcified. Moderate mitral annular calcification. Mild to moderate aortic valve stenosis. Spectral Doppler shows impaired relaxation pattern of left ventricular diastolic filling. Stage I diastolic dysfunction. [place] [id number] 06:06:44* Test Item Value Reference Range Interpretation Comments TSH (test code = 3016-3) 2.97 0.27- 4.20 uIU/mL [facility] [id number] 05:56:09* Test Item Value Reference Range Interpretation Comments Magnesium (test code = 69769-7) 1.6 mg/dL 1.6-2.4 [facility] [id number] 17:15:32* Test Item Value Reference Range Interpretation Comments Hemoglobin A1C (test code = 15089-7) 5.9 % 4-5.6 H HbA1c cutoffs for diagnosing diabetes:4.0% - 5.6% = normal5.7% - 6.4% = increased risk for diabetes (prediabetes)9>=6.5% = [id number] for glycemic control (ADA 2016)< 7.0% Target for non adults with diabetes. More or less stringent targets may be appropriate for individual patients. <7.5% Target for Children and adolescents with type 1 diabetes. Lab Interpretation (test code = 05557-8) Abnormal Hugh WinterUrine [id number] 14:39:06* Test Item Value Reference Range Interpretation Comments Urine culture (test code = 1460132) SEE COMMENT Bacteriuria screen negative. [facility] MethodistUrinalysis screen and microscopy, with reflex to culture 2019-10-20 14:39:06* Test Item Value Reference Range Interpretation Comments Specimen site (test code = 1952853) Clean catch Color, UA (test code = 5778-6) Straw Appearance, UA (test code = 5767-9) Clear Specific gravity, UA (test code = 5811-5) 1.006 1.001-1.035 pH, UA (test code = 5803-2) 7.0 5.0-8.5 Protein, UA (test code = 20383-6) Negative Negative Glucose, UA (test code = 21326-7) Negative Negative Ketones, UA (test code = 2514-8) Negative Negative Bilirubin, UA (test code = 5770-3) Negative Negative Blood, UA (test code = 5794-3) Negative Negative Nitrite, UA (test code = 5802-4) Negative Negative Urobilinogen, UA (test code = 55560-9) Negative <2.0 Leukocyte esterase, UA (test code = 5799-2) Negative Negative Epithelial cells, UA (test code = 5787-7) Few Few /HPF WBC, UA (test code = 5821-4) 0-5 0- 4 /HPF RBC, UA (test code = 33996-2) 0-5 0- 5 /HPF Bacteria, UA (test code = 93939-6) None seen None seen Yeast, UA (test code = 80141-5) None seen Yeast with pseudohyphae, UA (test code = 40659-4) None seen Hugh WinterECG 12 [id number] 07:38:05* Test Item Value Reference Range Interpretation Comments Ventricular rate (test code = 253) 104 Atrial rate (test code = 255) 104 GA interval (test code = 266) 120 QRSD interval (test code = 260) 76 QT interval (test code = 264) 322 QTC interval (test code = 265) 423 P axis 1 (test code = 267) 67 QRS axis 1 (test code = 268) 21 T wave axis (test code = 270) 62 EKG impression (test code = 273) Sinus tachycardia-Lef t ventricular hypertrophy with repolarization abnormality-Cannot rule out Septal infarct (cited on or before 19-MAR-2010)-Abnormal ECG-In automated comparison with ECG of 19-MAR-2010 00:17,-Minimal criteria for Inferior infarct are now present- [facility] MethodistComprehensive metabolic [id number] 06:27:58* Test Item Value Reference Range Interpretation Comments Sodium (test code = 2951-2) 140 135- 148 mEq/L Potassium (test code = 2823-3) 3.7 3.5- 5.0 mEq/L Chloride (test code = 2074-0) 99 98- 112 mEq/L CO2 (test code = 2027-) 34 24- 31 mEq/L H Anion gap (test code = 57018-2) 7@ANIO 7- 15 mEq/L BUN (test code = 3094-0) 16 mg/dL 8-23 Creatinine (test code = 2160-0) 0.60 mg/dL 0.5-0.9 Glucose (test code = 2345-7) 130 mg/dL 65-99 H Calcium (test code = 57036-0) 9.1 mg/dL 8.8-10.2 Protein (test code = 2885-2) 5.7 g/dL 6.3-8.3 L - 4.6- 7.0 g/dL1 week 4.4-7.6 g/dL7 months-1year 5.1-7.3 g/dL1-2 years 5.6-7.5 g/dL>3 years 6.0-8.0 g/xJ64-710 6.3-8.3 g/dL Albumin (test code = 1751-7) 3.3 g/dL 3.5-5 L A/G ratio (test code = 1759-0) 1.4 0.7-3.8 Alkaline phosphatase (test code = 6768-6) 69 U/L 35-104 AST (test code = 1920-8) 21 U/L 10-35 ALT (test code = 1742-6) 15 U/L 5-50 Total bilirubin (test code = 1974-2) 0.2 mg/dL 0-1.2 Lab Interpretation (test code = 72342-3) Abnormal [facility] MethodistLipid [id number] 06:27:58* Test Item Value Reference Range Interpretation Comments Cholesterol (test code = 2093-3) 143 mg/dL <200 Triglycerides (test code = 2571-8) 67 mg/dL <150 HDL cholesterol (test code = 2085-9) 61 mg/dL >40 LDL cholesterol (test code = 2088-1) 75 mg/dL <100 Result obtained by direct LDL measurement Lipid panel interpretation (test code = 38633-0) SeeBelow Total Cholesterol (mg/dL) <200 Desirable 200-239 Borderline-high >=240 High Triglycerides (mg/dL) <150 Normal 150-199 Borderline-high 200-499 High >=500 Very high HDL Cholesterol (mg/dL) <40 Low (male) <40 Low (female) LDL Cholesterol (mg/dL) <100 Optimal 100-129 Near or above optimal 130-159 Borderline-high 160-189 High >=190 Very high Risk Catergories that modify LDL goals.Risk Catergories LDL goal (mg/dL)CHD and CHD risk equivalent <100 (10-year risk >20%)Multiple (2+) risk factors <130 (10-year risk =<20%)0-1 risk factors <160 (<10-year risk) Defining levels of lipids in metabolic syndromeTriglycerides >=150 mg/dLHDL Cholesterol Men <40 mg/dL Women <40 mg/dL Non-HDL cholesterol is a second target for therapy in personswith high triglycerides (>=200 mg/dL) [facility]istCBC with platelet and wpxiptxzinyy7500-74-30 06:13:11* Test Item Value Reference Range Interpretation Comments WBC (test code = 64006-7) 6.49 4.50- 11.00 k/uL RBC (test code = 46763-4) 3.56 m/uL 4.2-5.5 L HGB (test code = 718-7) 10.6 g/dL 12-16 L HCT (test code = 4544-3) 32.5 % 37-47 L MCV (test code = 787-2) 91.3 fL 82-100 MCH (test code = 785-6) 29.8 pg 27-34 MCHC (test code = 786-4) 32.6 g/dL 31-37 RDW - SD (test code = 96152-2) 41.9 fL 37-55 MPV (test code = 18442-8) 11.0 fL 8.8-13.2 Platelet count (test code = 83395-4) 263 150- 400 k/uL Nucleated RBC (test code = 77662-4) 0.00 /100 WBC Neutrophils (test code = 46099-6) 67.5 % 39-69 Lymphocytes (test code = 48571-7) 18.6 % 25-45 L Monocytes (test code = 50599-9) 13.3 % 0-10 H Eosinophils (test code = 60232-9) 0.0 % 0-5 Basophils (test code = 59821-6) 0.3 % 0-1 Lab Interpretation (test code = 63848-3) Abnormal Hugh JangIlwfslgatHyzfpoco9100-36-59 00:11:20* Test Item Value Reference Range Interpretation Comments Troponin (test code = 56814-8) 0.009 ng/mL 0-0.04 In patients suspected of having a myocardial infarction, along with all other appropriate clinical measures and actions including ECG and other diagnostics as appropriate, measure Ultra TnI at 0 hrs and at 3 hrs.Myocardial infarction VERY LIKELYThe 0 hr TnI level is > 0.10 ng/mL Naga cardial infarction LIKELYThe 0 hr TnI level is > 0.04 ng/mL and 3 hr level is increased or decreased by at least 0.020 ng/mL Myocardi al infarction VERY UNLIKELYBoth the 0 hr and 3 hr TnI levels <= 0.04 ng/mL(within normal limits) OR 0 hr is > 0.04 ng/mL and 3 hr is increased OR decreased by less than 0.020 ng/mL [facility] MethodistLactic acid level, SEPSIS - Now and repeat 2x every 3 hours 2019-10-19 23:57:12* Test Item Value Reference Range Interpretation Comments Lactic acid (test code = 29631-5) 1.6 mmol/L 0.5-2.2 [facility] MethodistB natriuretic [id number] 19:21:10* Test Item Value Reference Range Interpretation Comments BNP (test code = 91509-8) 87 pg/mL 0-100 [place] MethodistCreatine kinase, total (CPK)2019-10-19 19:12:31* Test Item Value Reference Range Interpretation Comments Creatine kinase (test code = 2157-6) 58 U/L 26-192 [place] MethodistPhosphorus [id number] 19:12:31* Test Item Value Reference Range Interpretation Comments Phosphorus (test code = 2777-1) 2.8 mg/dL 2.4-4.5 [place] MethodistProthrombin time with [id number] 19:08:07* Test Item Value Reference Range Interpretation Comments Prothrombin time (test code = 5902-2) 15.9 11.5- 14.5 sec H INR (test code = 38646-2) 1.3 Th e International Normalized Ratio (INR) is a therapeutic monitoring tool for patients who are stable on oral anticoagulant therapy. An INR of 2.0-3.0 is suggested for deep vein thrombosis/pulmonary embolism. Lab Interpretation (test code = 32734-9) Abnormal [facility] MethodistPartial thromboplastin time, [id number] 19:08:07* Test Item Value Reference Range Interpretation Comments PTT (test code = 53170-6) 46.7 23.0- 36.0 sec H PTT therapeutic range for unfractionated heparin is61.0-112.0 seconds which corresponds to Anti-Xa0.3-0.7 U/ml. Lab Interpretation (test code = 99251-2) Abnormal [facility] MethodistXR Chest 1 Vw [id number] 18:54:50Hm Interface, Radiology Results 10/19/2019 6:57 PM CDTEXAMINATION: XR CHEST 1 VW PORTABLECLINICAL HISTORY: SOBCOMPARISON: March 14, 2010 chest x- rayIMPRESSION:1.Lungs are hyperinflated. There is some scarring at both costop hrenic angles.2.Interstitial prominence in the lungs has increased since the laron or study which may be related to some edema. No consolidation noted.3.Heart size is at the upper limits of normal.[id number] MethodistECG ED Preliminary Interpretation - Not an [id number] 18:38:32Bacilio Garcia MD 10/20/2019 1:13 AMECG ED Preliminary Interpretation - Not an OrderPerformed by: Bacilio Garcia MDAuthorized by: Bacilio Garcia MD ECG reviewed by ED Physician in the absence of a clubhouse attendant: yes Interpretation: Interpretation: normal Quality: Tracing quality: Limited by artifactRate: ECG rate: 104 ECG rate assessment: tachycardic Rhythm: Rhythm: sinus tachycardia Ectopy: Ectopy: none QRS: QRS axis: Normal QRS intervals: NormalConduction: Conduction: normal ST segments: ST segments: Non-specificT waves: T waves: non- specific Other findings: Other findings: LVH Hugh Winter
--- NOTE | 2019-12-14 10:05 | Emergency Department Note ---
History of Present Illnes History of Present Illness Chief Complaint: General Medicine Complaints History of Present Illness This is a 79 year old female pt came in via [facility] for evaluation of tachycardia and tremors, PA from [facility] was making rounds when she noticed the patient's HR above 100 BPM, pt had an albuterol treatment at 0730, ambulance called to send her here to get ECG, given her regular dosage of Metoprolol prior to ambulance arriving. Pt now feels well without complaints Historian: Patient, [facility]rival [facility] CELLOPHANER: O2 Instructional Resource Teacher Required: No Onset (how long ago): hour(s) (2) Location: no complaints Radiation: Reports non-radiation Severity: mild Onset quality: gradual Timing of current episode: constant Progression: resolved Chronicity: recurrent Context: Denies recent illness Relieving factors: none Exacerbating factors: none Associated symptoms: Reports denies other symptoms, Reports other (palpitations and shakiness (after Albuterol neb and prior to taking Metoprolol)) Past Medical/Family History Physician Review I have reviewed the patient's past medical and family history. Any updates have been documented here. Past Medical History Recent Fever: No Clinical Suspicion of Infectio: No New/Unexplained Change in Ment: No Past Medical History: Hypertension, COPD (on 3L home O2), Depression Other Medical History: Non Hodgkins Lymphoma Social History Smoking Cessation: Former smoker Counseling Performed: No Alcohol Use: None Any Illegal Drug Use: No TB Exposure/Symptoms: No Physically hurt or threatened: No Family History Family history of heart diseas: Yes Review of Systems Review of Systems Constitutional: Reports no symptoms EENTM: Reports no symptoms Cardiovascular: Reports as per HPI, Reports palpitations Respiratory: Reports no symptoms Gastrointestinal: Reports no symptoms Genitourinary: Reports no symptoms Musculoskeletal: Reports no symptoms Integumentary: Reports no symptoms Neurological: Reports as per HPI, Reports tremors Psychological: Reports no symptoms Endocrine: Reports no symptoms Hematological/Lymphatic: Reports no symptoms Physical Exam Related Data Allergies: Coded Allergies: aspirin (Verified Allergy, Unknown, 12/14/19) lisinopril (Verified Allergy, Unknown, 12/14/19) morphine (Verified Allergy, Unknown, 12/14/19) phenobarbital (Verified Allergy, Unknown, 12/14/19) vilanterol (Verified Allergy, Unknown, 12/14/19) Uncoded Allergies: FLUTICASONE FUROATE (Allergy, Unknown, 12/14/19) Triage Vital Signs Vital Signs Date Time Temp Pulse Resp B/P (MAP) Pulse Ox O2 Delivery O2 Flow Rate FiO2 12/14/19 09:35 98.4 111 18 142/93 97 Nasal Cannula 2.0 Vital signs reviewed: Yes Physical Exam CONSTITUTIONAL Constitutional: Present well-developed, Present well-nourished HENT HENT: Present normocephalic, Present atraumatic, Present oropharynx clear/moist, Present nose normal HENT L/R: Present left ext ear normal, Present right ext ear normal EYES Eyes: Reports PERRL, Reports conjunctivae normal NECK Neck: Present ROM normal PULMONARY Pulmonary: Present effort normal, Present other (decreased BS throughout, no wheezing) CARDIOVASCULAR Cardiovascular: Present regular rhythm, Present heart sounds normal, Present capillary refill normal, Present normal rate, Present murmur (1/6 high-pitched sys murmur) GASTROINTESTINAL Abdominal: Present soft, Present nontender, Present bowel sounds normal GENITOURINARY Genitourinary: Present exam deferred SKIN Skin: Present warm, Present dry MUSCULOSKELETAL Musculoskeletal: Present ROM normal NEUROLOGICAL Neurological: Present alert, Present oriented x 3, Present no gross motor or sensory deficits PSYCHOLOGICAL Psychological: Present mood/affect normal, Present judgement normal Procedures 12 Lead ECG Interpretation ECG Interpretation : ECG: ECG 1 Instructional Resource Teacher: Interpreted by ED physician Date: Dec 14, 2019 Time: 09:45 Rhythm: sinus rhythm Rate: normal BPM: 83 QRS axis: normal ST segments normal: Yes T waves normal: Yes Clinical Impression: normal ECG Assessment & Plan Medical Decision Making MDM per pt, she was sent just to get an ECG - pt looks good, feels well - if ECG unremarkable, [facility] Reassessment Reassessment pt does not want anything other than ECG, refusing blood work, wants to go [facility] Assessment & Plan Final Impression: (1) Adverse effect of albuterol Depart Disposition: HOME, SELF-CARE Last Vital Signs Date Time Temp Pulse Resp B/P (MAP) Pulse Ox O2 Delivery O2 Flow Rate FiO2 12/14/19 09:35 98.4 111 18 142/93 97 Nasal Cannula 2.0 DAVID TAYLOR MD Dec 14, 2019 10:05
== END 2019-12-14 10:59 | disposition home or self-care (01) ==
LOC: ER 09:50
DX: R00.0 Tachycardia, unspecified (principal); T48.6X5A Adverse effect of antiasthmatics, initial encounter; I10 Essential (primary) hypertension; J44.9 Chronic obstructive pulmonary disease, unspecified; F32.9 Major depressive disorder, single episode, unspecified; Z99.81 Dependence on supplemental oxygen; Z85.72 Personal history of non-Hodgkin lymphomas
CPT/HCPCS: 93005; 99283

== ENCOUNTER 2020-02-21 10:19 | Inpatient (IN) | payer MEDICARE ==
[~2020-02-21] VITALS: Ht 152.4 cm; Wt 72.6 kg
[2020-02-21] MEDS ORDERED: PIPERACILLIN/TAZO 4.5 GM 100 ML IV STA (10:29)
[2020-02-21] MEDS ORDERED: ALBUTEROL/IPRATROPIUM 3 ML NEB NEB ONE (10:30)
[2020-02-21] MEDS ORDERED: SODIUM CHLORIDE 0.9% 1000ML 1,000 ML ONE (10:33)
[2020-02-21] MEDS ORDERED: ALBUTEROL SULF 0.083% NEB SOLN 3 ML NEB ONE (10:34)
[2020-02-21] MEDS ORDERED: IPRATROPIUM BROMIDE 0.02% 2.5 ML NEB ONE (10:35)
[2020-02-21 10:55] LABS: BASOPHILS # (AUTO) 0.1 (0.0-0.1); BASOPHILS % 0.5 % (0.0-1.0); HEMATOCRIT 33.8 % (34.2-44.1); LYMPHOCYTES # (AUTO) 0.5 (1.0-3.2); LYMPHOCYTES % 5.2 % (18.0-39.1); MEAN CORPUSCULAR HEMOGLOBIN 25.6 pg (28-32); MEAN CORPUSCULAR HGB CONC 29.6 g/dL (31-35); MEAN CORPUSCULAR VOLUME 86.4 fL (81-99); MONOCYTES # (AUTO) 1.1 (0.2-0.8); MONOCYTES % 10.7 % (4.4-11.3); NEUTROPHILS # (AUTO) 8.4 (2.1-6.9); NEUTROPHILS % 82.8 % (38.7-80.0); PLATELET COUNT 381 x10e3/uL (140-360); RED BLOOD COUNT 3.91 x10e6/uL (3.6-5.1); RED CELL DISTRIBUTION WIDTH 14.6 % (11.7-14.4)
[2020-02-21] MEDS ORDERED: DEXAMETHASONE SOD PHOS INJ 4 MG/ML VIAL IV ONE (11:00)
[2020-02-21 11:01] LABS: CLARITY,URINE SL CLOUDY (CLEAR); COLOR,URINE YELLOW (YELLOW); KETONES,URINE NEGATIVE (NEGATIVE); LEUKOCYTE ESTERASE ,URINE NEGATIVE (NEGATIVE); NITRITE,URINE NEGATIVE (NEGATIVE); PROTEIN,URINE DIPSTICK 2+ (NEGATIVE); URINE UROBILINOGEN 1 mg/dL (0.2 - 1)
[2020-02-21 11:04] LABS: BACTERIA,URINE FEW /HPF; EPITHELIAL CELLS,URINE FEW /LPF; MUCUS,URINE FEW (RARE)
[2020-02-21 11:29] LABS: INR 0.98; PROTHROMBIN TIME 13.5 seconds (11.9-14.5)
[2020-02-21] MEDS ORDERED: LACTATED RINGER'S 1,000 ML INJ ONE ×2 (11:30→12:30)
[2020-02-21 11:32] LABS: ALANINE AMINOTRANSFERASE 114 IU/L (0-55); ALBUMIN/GLOBULIN RATIO 0.8 (0.8-2.0); ALKALINE PHOSPHATASE 331 IU/L (40-150); ANION GAP 17.9 mmol/L (8-16); BLOOD UREA NITROGEN 17 mg/dL (7-26); BUN/CREATININE RATIO 25 (6-25); CALCIUM 9.5 mg/dL (8.4-10.2); CARBON DIOXIDE 33 mmol/L (22-29); CHLORIDE 95 mmol/L (98-107); CREATININE, SERUM 0.69 mg/dL (0.57-1.11); EST GLOMERULAR FILTRATION RATE > 60 ML/MIN (60-); GLUCOSE 185 mg/dL (74-118); POTASSIUM 3.9 mmol/L (3.5-5.1); SODIUM 142 mmol/L (136-145)
[2020-02-21] MEDS ORDERED: LACTATED RINGER'S 500 ML IV ONE ×2 (13:00)
[2020-02-21] MEDS: ALBUTEROL SULF 0.083% NEB SOLN 3 ML NEB NEB PRN (15:47)
[2020-02-21] MEDS ORDERED: FUROSEMIDE INJ 10 MG/ML 4 ML VIAL IV ONE (17:00)
[2020-02-21] MEDS ORDERED: ONDANSETRON HCL INJ 2MG/ML 2ML 2 MG/ML VIAL IV PRN (17:15)
[2020-02-21] MEDS ORDERED: ACETAMINOPHEN 325 MG TAB PO PRN (17:15)
[2020-02-21] MEDS ORDERED: CEFEPIME HCL 1 GM VIAL IV SCH (17:30)
[2020-02-21] MEDS: ENOXAPARIN SOD INJ 40 MG/0.4 ML SYR SC SCH (18:27)
[2020-02-21] MEDS: CEFEPIME 1GM/NS 0.9% 50 ML 50 ML IV SCH (18:27)
[2020-02-21] MEDS: VANCOMYCIN 1GM/NS 250 ML 250 ML IV SCH (19:20)
[2020-02-21] MEDS ORDERED: NOREPINEPHRINE INJ 4MG/4ML 8 MG in DEXTROSE 5% 250ML 250 ML IV SCH (21:00)
[2020-02-21] MEDS ORDERED: NOREPINEPHRINE INJ 4MG/4ML 8 MG in DEXTROSE 5% 250ML 250 ML IV PRN (22:00)
[2020-02-21] MEDS ORDERED: ADVAIR HFA 115-12 GM IH (22:44)
[2020-02-21] MEDS ORDERED: TRAZODONE HCL50 MG PO (22:44)
[2020-02-21] MEDS ORDERED: MONTELUKAST SOD10 MG PO (22:44)
[2020-02-21] MEDS ORDERED: MIDODRINE HCL5 MG PO (22:44)
[2020-02-21] MEDS ORDERED: THEOPHYLLINE PO (22:44)
[2020-02-21] MEDS ORDERED: METOPROLOL SUCC50 MG PO (22:44)
[2020-02-21] MEDS ORDERED: PREDNISONE20 MG PO (22:44)
[2020-02-21] MEDS ORDERED: ATIVAN1 MG PO (22:44)
[2020-02-21] MEDS ORDERED: LORATADINE10 MG PO (22:44)
[2020-02-21] MEDS ORDERED: ALBUTEROL0.63 MG/3 INH (22:44)
[2020-02-21] MEDS ORDERED: OMEPRAZOLE40 MG PO (22:44)
[2020-02-21] MEDS ORDERED: SERTRALINE HCL50 MG PO (22:44)
[2020-02-21] MEDS ORDERED: MUCINEX600 MG PO (22:44)
[2020-02-21] MEDS ORDERED: XARELTO20 MG PO (22:44)
[2020-02-22] MEDS: CEFEPIME 1GM/NS 0.9% 50 ML 50 ML IV SCH ×4 (01:34→20:47)
[2020-02-22] MEDS: ALBUTEROL SULF 0.083% NEB SOLN 3 ML NEB NEB PRN (01:45)
[2020-02-22 04:07] LABS: BASOPHILS % 0.1 % (0.0-1.0); HEMATOCRIT 28.8 % (34.2-44.1); HEMOGLOBIN 8.7 g/dL (12.0-16.0); LYMPHOCYTES # (AUTO) 0.6 (1.0-3.2); LYMPHOCYTES % 7.5 % (18.0-39.1); MEAN CORPUSCULAR HEMOGLOBIN 25.7 pg (28-32); MEAN CORPUSCULAR HGB CONC 30.2 g/dL (31-35); MONOCYTES # (AUTO) 1.3 (0.2-0.8); MONOCYTES % 17.3 % (4.4-11.3); NEUTROPHILS # (AUTO) 5.5 (2.1-6.9); NEUTROPHILS % 74.7 % (38.7-80.0); PLATELET COUNT 268 x10e3/uL (140-360); RED BLOOD COUNT 3.39 x10e6/uL (3.6-5.1); RED CELL DISTRIBUTION WIDTH 14.5 % (11.7-14.4)
[2020-02-22 04:23] LABS: ANION GAP 16.9 mmol/L (8-16); BLOOD UREA NITROGEN 24 mg/dL (7-26); BUN/CREATININE RATIO 35 (6-25); CALCIUM 8.9 mg/dL (8.4-10.2); CARBON DIOXIDE 34 mmol/L (22-29); CHLORIDE 100 mmol/L (98-107); CREATININE, SERUM 0.69 mg/dL (0.57-1.11); EST GLOMERULAR FILTRATION RATE > 60 ML/MIN (60-); GLUCOSE 117 mg/dL (74-118); POTASSIUM 3.9 mmol/L (3.5-5.1); SODIUM 147 mmol/L (136-145)
[2020-02-22] MEDS ORDERED: FUROSEMIDE INJ 10 MG/ML 4 ML VIAL IV ONE (06:15)
[2020-02-22] MEDS: ENOXAPARIN SOD INJ 40 MG/0.4 ML SYR SC SCH (07:43)
[2020-02-22] MEDS: SERTRALINE HCL 50 MG TAB PO SCH ×2 (08:08→22:03)
[2020-02-22 08:18] LABS: ABG HCO3 39 mmol/L (22-26); ABG PCO2 62 mmHg (35-45); ABG PH 7.41 (7.35-7.45); ABG PO2 87 mmHg (80-105); ABG TCO2 41
[2020-02-22] MEDS ORDERED: HALOPERIDOL LACTATE 5 MG/ML VIAL IV ONE (09:15)
[2020-02-22] MEDS: VANCOMYCIN 1GM/NS 250 ML 250 ML IV SCH (11:10)
[2020-02-22] MEDS ORDERED: HALOPERIDOL LACTATE 5 MG/ML VIAL IM ONE (22:00)
[2020-02-23] VITALS (17 sets, daily range): BP systolic 83–131; BP diastolic 51–81
[2020-02-23] MEDS: ALBUTEROL SULF 0.083% NEB SOLN 3 ML NEB INH SCH ×3 (00:25→20:00)
[2020-02-23 05:50] LABS: BASOPHILS % 0.4 % (0.0-1.0); EOSINOPHILS # (AUTO) 0.1 (0.0-0.4); EOSINOPHILS % 2.5 % (0.0-6.0); HEMATOCRIT 28.4 % (34.2-44.1); HEMOGLOBIN 8.3 g/dL (12.0-16.0); LYMPHOCYTES # (AUTO) 0.6 (1.0-3.2); LYMPHOCYTES % 9.8 % (18.0-39.1); MEAN CORPUSCULAR HEMOGLOBIN 25.2 pg (28-32); MEAN CORPUSCULAR HGB CONC 29.2 g/dL (31-35); MEAN CORPUSCULAR VOLUME 86.3 fL (81-99); MONOCYTES # (AUTO) 0.9 (0.2-0.8); NEUTROPHILS # (AUTO) 4.1 (2.1-6.9); NEUTROPHILS % 70.9 % (38.7-80.0); PLATELET COUNT 258 x10e3/uL (140-360); RED BLOOD COUNT 3.29 x10e6/uL (3.6-5.1); RED CELL DISTRIBUTION WIDTH 14.6 % (11.7-14.4)
[2020-02-23] MEDS: CEFEPIME 1GM/NS 0.9% 50 ML 50 ML IV SCH ×3 (06:02→17:07)
[2020-02-23 06:21] LABS: ALANINE AMINOTRANSFERASE 78 IU/L (0-55); ALBUMIN 2.6 g/dL (3.5-5.0); ALBUMIN/GLOBULIN RATIO 0.9 (0.8-2.0); ALKALINE PHOSPHATASE 225 IU/L (40-150); ANION GAP 13.3 mmol/L (8-16); BLOOD UREA NITROGEN 27 mg/dL (7-26); BUN/CREATININE RATIO 47 (6-25); CALCIUM 8.9 mg/dL (8.4-10.2); CARBON DIOXIDE 39 mmol/L (22-29); CHLORIDE 98 mmol/L (98-107); CREATININE, SERUM 0.57 mg/dL (0.57-1.11); EST GLOMERULAR FILTRATION RATE > 60 ML/MIN (60-); GLUCOSE 112 mg/dL (74-118); MAGNESIUM 1.5 MG/DL (1.3-2.1); POTASSIUM 3.3 mmol/L (3.5-5.1); SODIUM 147 mmol/L (136-145)
[2020-02-23] MEDS: VANCOMYCIN 1GM/NS 250 ML 250 ML IV SCH (08:44)
[2020-02-23] MEDS: SERTRALINE HCL 50 MG TAB PO SCH ×2 (08:51→17:07)
[2020-02-23] MEDS ORDERED: METHYLPREDNISOLONE SOD SUCC 125 MG/2ML VIAL IV ONE (14:00)
[2020-02-23] MEDS: ENOXAPARIN SOD INJ 40 MG/0.4 ML SYR SC SCH (17:07)
[2020-02-24] MEDS: CEFEPIME 1GM/NS 0.9% 50 ML 50 ML IV SCH ×3 (02:52→17:28)
[2020-02-24] MEDS: MONTELUKAST SODIUM 10 MG TAB PO SCH ×2 (02:52→23:02)
[2020-02-24] MEDS: FLUTICASONE/SALMETEROL 115/21 12 GM AERO IH SCH ×3 (02:52→20:20)
[2020-02-24] MEDS: ALBUTEROL SULF 0.083% NEB SOLN 3 ML NEB INH SCH ×6 (02:55→23:10)
[2020-02-24 06:37] LABS: BASOPHILS % 0.2 % (0.0-1.0); HEMATOCRIT 27.9 % (34.2-44.1); HEMOGLOBIN 8.1 g/dL (12.0-16.0); LYMPHOCYTES # (AUTO) 0.4 (1.0-3.2); LYMPHOCYTES % 9.4 % (18.0-39.1); MEAN CORPUSCULAR HEMOGLOBIN 25.1 pg (28-32); MEAN CORPUSCULAR VOLUME 86.4 fL (81-99); MONOCYTES # (AUTO) 0.9 (0.2-0.8); MONOCYTES % 19.6 % (4.4-11.3); NEUTROPHILS # (AUTO) 3.2 (2.1-6.9); NEUTROPHILS % 70.4 % (38.7-80.0); PLATELET COUNT 263 x10e3/uL (140-360); RED BLOOD COUNT 3.23 x10e6/uL (3.6-5.1); RED CELL DISTRIBUTION WIDTH 14.6 % (11.7-14.4)
[2020-02-24 07:01] LABS: ALANINE AMINOTRANSFERASE 55 IU/L (0-55); ALBUMIN 2.6 g/dL (3.5-5.0); ALKALINE PHOSPHATASE 188 IU/L (40-150); ANION GAP 11.6 mmol/L (8-16); BLOOD UREA NITROGEN 27 mg/dL (7-26); BUN/CREATININE RATIO 47 (6-25); CALCIUM 9.2 mg/dL (8.4-10.2); CARBON DIOXIDE 38 mmol/L (22-29); CHLORIDE 99 mmol/L (98-107); CREATININE, SERUM 0.58 mg/dL (0.57-1.11); EST GLOMERULAR FILTRATION RATE > 60 ML/MIN (60-); GLUCOSE 125 mg/dL (74-118); POTASSIUM 3.6 mmol/L (3.5-5.1); SODIUM 145 mmol/L (136-145)
[2020-02-24] MEDS: SERTRALINE HCL 50 MG TAB PO SCH ×2 (08:46→17:28)
[2020-02-24] MEDS: VANCOMYCIN 1GM/NS 250 ML 250 ML IV SCH (08:46)
[2020-02-24] MEDS: PANTOPRAZOLE SOD 40 MG TABEC PO SCH (08:46)
[2020-02-24] MEDS ORDERED: METHYLPREDNISOLONE SOD SUCC 125 MG/2ML VIAL IV ONE (14:00)
[2020-02-24] MEDS: ENOXAPARIN SOD INJ 40 MG/0.4 ML SYR SC SCH (17:28)
[2020-02-25] MEDS: CEFEPIME 1GM/NS 0.9% 50 ML 50 ML IV SCH ×3 (03:00→18:00)
[2020-02-25] MEDS: ALBUTEROL SULF 0.083% NEB SOLN 3 ML NEB INH SCH ×4 (03:10→14:20)
[2020-02-25] MEDS: FLUTICASONE/SALMETEROL 115/21 12 GM AERO IH SCH (06:53)
[2020-02-25 07:11] LABS: BASOPHILS % 0.2 % (0.0-1.0); HEMATOCRIT 29.4 % (34.2-44.1); HEMOGLOBIN 8.7 g/dL (12.0-16.0); LYMPHOCYTES # (AUTO) 0.6 (1.0-3.2); LYMPHOCYTES % 10.9 % (18.0-39.1); MEAN CORPUSCULAR HEMOGLOBIN 25.3 pg (28-32); MEAN CORPUSCULAR HGB CONC 29.6 g/dL (31-35); MEAN CORPUSCULAR VOLUME 85.5 fL (81-99); MONOCYTES # (AUTO) 0.8 (0.2-0.8); MONOCYTES % 14.3 % (4.4-11.3); NEUTROPHILS # (AUTO) 3.9 (2.1-6.9); NEUTROPHILS % 74.4 % (38.7-80.0); PLATELET COUNT 287 x10e3/uL (140-360); RED BLOOD COUNT 3.44 x10e6/uL (3.6-5.1); RED CELL DISTRIBUTION WIDTH 14.6 % (11.7-14.4)
[2020-02-25 07:39] LABS: ANION GAP 13.2 mmol/L (8-16); BLOOD UREA NITROGEN 14 mg/dL (7-26); BUN/CREATININE RATIO 27 (6-25); CALCIUM 8.7 mg/dL (8.4-10.2); CARBON DIOXIDE 39 mmol/L (22-29); CHLORIDE 94 mmol/L (98-107); CREATININE, SERUM 0.52 mg/dL (0.57-1.11); EST GLOMERULAR FILTRATION RATE > 60 ML/MIN (60-); GLUCOSE 121 mg/dL (74-118); POTASSIUM 3.2 mmol/L (3.5-5.1); SODIUM 143 mmol/L (136-145)
[2020-02-25] MEDS: VANCOMYCIN 1GM/NS 250 ML 250 ML IV SCH (11:42)
[2020-02-25] MEDS: SERTRALINE HCL 50 MG TAB PO SCH ×2 (11:42→18:00)
[2020-02-25] MEDS: PANTOPRAZOLE SOD 40 MG TABEC PO SCH (11:42)
[2020-02-25] MEDS: ENOXAPARIN SOD INJ 40 MG/0.4 ML SYR SC SCH (18:00)
[2020-02-26] MEDS: MONTELUKAST SODIUM 10 MG TAB PO SCH ×2 (01:00→22:00)
[2020-02-26] MEDS: ALBUTEROL SULF 0.083% NEB SOLN 3 ML NEB INH SCH ×6 (02:05→22:45)
[2020-02-26] MEDS: CEFEPIME 1GM/NS 0.9% 50 ML 50 ML IV SCH ×3 (02:29→19:15)
[2020-02-26 06:26] LABS: BASOPHILS % 0.2 % (0.0-1.0); HEMATOCRIT 28.7 % (34.2-44.1); HEMOGLOBIN 8.7 g/dL (12.0-16.0); LYMPHOCYTES # (AUTO) 0.5 (1.0-3.2); LYMPHOCYTES % 9.3 % (18.0-39.1); MEAN CORPUSCULAR HEMOGLOBIN 25.4 pg (28-32); MEAN CORPUSCULAR HGB CONC 30.3 g/dL (31-35); MEAN CORPUSCULAR VOLUME 83.7 fL (81-99); MONOCYTES # (AUTO) 0.8 (0.2-0.8); NEUTROPHILS # (AUTO) 3.8 (2.1-6.9); NEUTROPHILS % 74.1 % (38.7-80.0); PLATELET COUNT 248 x10e3/uL (140-360); RED BLOOD COUNT 3.43 x10e6/uL (3.6-5.1); RED CELL DISTRIBUTION WIDTH 14.4 % (11.7-14.4)
[2020-02-26] MEDS: FLUTICASONE/SALMETEROL 115/21 12 GM AERO IH SCH ×2 (06:38→19:00)
[2020-02-26 06:59] LABS: ALANINE AMINOTRANSFERASE 29 IU/L (0-55); ALBUMIN 2.5 g/dL (3.5-5.0); ALKALINE PHOSPHATASE 143 IU/L (40-150); ANION GAP 10.9 mmol/L (8-16); BLOOD UREA NITROGEN 7 mg/dL (7-26); BUN/CREATININE RATIO 16 (6-25); CALCIUM 8.4 mg/dL (8.4-10.2); CHLORIDE 89 mmol/L (98-107); CREATININE, SERUM 0.45 mg/dL (0.57-1.11); EST GLOMERULAR FILTRATION RATE > 60 ML/MIN (60-); GLUCOSE 106 mg/dL (74-118); SODIUM 139 mmol/L (136-145)
[2020-02-26 07:15] LABS: CARBON DIOXIDE 42 mmol/L (22-29); POTASSIUM 2.9 mmol/L (3.5-5.1)
[2020-02-26] MEDS ORDERED: POTASSIUM CHLORIDE 20MEQ/100ML 100 ML IV ONE ×2 (07:30→13:19)
[2020-02-26] MEDS: PANTOPRAZOLE SOD 40 MG TABEC PO SCH (08:10)
[2020-02-26] MEDS: VANCOMYCIN 1GM/NS 250 ML 250 ML IV SCH (08:10)
[2020-02-26] MEDS: SERTRALINE HCL 50 MG TAB PO SCH ×2 (08:10→19:15)
[2020-02-26] MEDS ORDERED: POTASSIUM CHLORIDE 20MEQ/100ML 200 ML IV ONE (13:00)
[2020-02-26 17:27] VITALS: BP 99/62
[2020-02-26] MEDS: ENOXAPARIN SOD INJ 40 MG/0.4 ML SYR SC SCH (19:15)
[2020-02-26 20:24] VITALS: BP 99/62
[2020-02-26 20:45] VITALS: BP 94/72
[2020-02-26 22:47] VITALS: BP 94/72
[2020-02-27] VITALS (7 sets, daily range): BP systolic 97–120; BP diastolic 57–81
[2020-02-27] MEDS: ALBUTEROL SULF 0.083% NEB SOLN 3 ML NEB INH SCH ×6 (01:45→21:20)
[2020-02-27] MEDS ORDERED: SODIUM CHLORIDE 0.9% 250ML 250 ML ONE (01:59)
[2020-02-27] MEDS: CEFEPIME 1GM/NS 0.9% 50 ML 50 ML IV SCH ×3 (02:30→17:08)
[2020-02-27 06:23] LABS: BASOPHILS % 0.2 % (0.0-1.0); HEMOGLOBIN 8.5 g/dL (12.0-16.0); LYMPHOCYTES # (AUTO) 0.5 (1.0-3.2); LYMPHOCYTES % 10.9 % (18.0-39.1); MEAN CORPUSCULAR HEMOGLOBIN 24.7 pg (28-32); MEAN CORPUSCULAR HGB CONC 29.3 g/dL (31-35); MEAN CORPUSCULAR VOLUME 84.3 fL (81-99); MONOCYTES # (AUTO) 0.6 (0.2-0.8); MONOCYTES % 12.1 % (4.4-11.3); NEUTROPHILS # (AUTO) 3.7 (2.1-6.9); NEUTROPHILS % 76.4 % (38.7-80.0); PLATELET COUNT 230 x10e3/uL (140-360); RED BLOOD COUNT 3.44 x10e6/uL (3.6-5.1); RED CELL DISTRIBUTION WIDTH 14.4 % (11.7-14.4)
[2020-02-27] MEDS: FLUTICASONE/SALMETEROL 115/21 12 GM AERO IH SCH ×2 (07:00→19:00)
[2020-02-27 07:02] LABS: ALANINE AMINOTRANSFERASE 24 IU/L (0-55); ALBUMIN 2.4 g/dL (3.5-5.0); ALKALINE PHOSPHATASE 127 IU/L (40-150); ANION GAP 6.2 mmol/L (8-16); BLOOD UREA NITROGEN 7 mg/dL (7-26); BUN/CREATININE RATIO 16 (6-25); CALCIUM 8.4 mg/dL (8.4-10.2); CHLORIDE 93 mmol/L (98-107); CREATININE, SERUM 0.45 mg/dL (0.57-1.11); EST GLOMERULAR FILTRATION RATE > 60 ML/MIN (60-); GLUCOSE 108 mg/dL (74-118); POTASSIUM 3.2 mmol/L (3.5-5.1); SODIUM 142 mmol/L (136-145)
[2020-02-27 07:03] LABS: CARBON DIOXIDE 46 mmol/L (22-29)
[2020-02-27] MEDS: SERTRALINE HCL 50 MG TAB PO SCH ×2 (08:18→16:55)
[2020-02-27] MEDS: VANCOMYCIN 1GM/NS 250 ML 250 ML IV SCH (08:18)
[2020-02-27] MEDS: PANTOPRAZOLE SOD 40 MG TABEC PO SCH (08:18)
[2020-02-27] MEDS ORDERED: POTASSIUM CHLORIDE 20 MEQ TAB CR PO ONE (13:30)
[2020-02-27] MEDS: ENOXAPARIN SOD INJ 40 MG/0.4 ML SYR SC SCH (16:55)
[2020-02-27] MEDS: MONTELUKAST SODIUM 10 MG TAB PO SCH (21:23)
[2020-02-28] VITALS (7 sets, daily range): BP systolic 91–122; BP diastolic 55–85
[2020-02-28] MEDS: ALBUTEROL SULF 0.083% NEB SOLN 3 ML NEB INH SCH ×6 (00:22→19:40)
[2020-02-28] MEDS: CEFEPIME 1GM/NS 0.9% 50 ML 50 ML IV SCH ×3 (02:00→17:07)
[2020-02-28] MEDS: FLUTICASONE/SALMETEROL 115/21 12 GM AERO IH SCH ×2 (07:00→19:00)
[2020-02-28] MEDS ORDERED: POTASSIUM CHLORIDE 20 MEQ TAB CR PO NR (07:00)
[2020-02-28] MEDS: SERTRALINE HCL 50 MG TAB PO SCH ×2 (07:54→16:40)
[2020-02-28] MEDS: VANCOMYCIN 1GM/NS 250 ML 250 ML IV SCH (07:54)
[2020-02-28] MEDS: BALSAM PERU/CASTOR OIL 60 GM OINT...G. TP SCH (07:54)
[2020-02-28] MEDS: PANTOPRAZOLE SOD 40 MG TABEC PO SCH (07:54)
[2020-02-28 08:35] LABS: ANION GAP 9.9 mmol/L (8-16); BLOOD UREA NITROGEN 7 mg/dL (7-26); BUN/CREATININE RATIO 13 (6-25); CALCIUM 9.2 mg/dL (8.4-10.2); CHLORIDE 93 mmol/L (98-107); CREATININE, SERUM 0.54 mg/dL (0.57-1.11); EST GLOMERULAR FILTRATION RATE > 60 ML/MIN (60-); GLUCOSE 121 mg/dL (74-118); POTASSIUM 3.9 mmol/L (3.5-5.1); SODIUM 142 mmol/L (136-145)
[2020-02-28 08:39] LABS: CARBON DIOXIDE 43 mmol/L (22-29)
[2020-02-28] MEDS: ENOXAPARIN SOD INJ 40 MG/0.4 ML SYR SC SCH (16:40)
[2020-02-28] MEDS: MONTELUKAST SODIUM 10 MG TAB PO SCH (20:38)
[2020-02-29] VITALS: BP 96/68
[2020-02-29] MEDS: CEFEPIME 1GM/NS 0.9% 50 ML 50 ML IV SCH ×3 (02:20→16:16)
[2020-02-29 04:00] VITALS: BP 124/80
[2020-02-29] MEDS: ALBUTEROL SULF 0.083% NEB SOLN 3 ML NEB INH SCH ×4 (04:22→16:26)
[2020-02-29 05:34] LABS: ANION GAP 9.2 mmol/L (8-16); BLOOD UREA NITROGEN 9 mg/dL (7-26); BUN/CREATININE RATIO 17 (6-25); CALCIUM 8.8 mg/dL (8.4-10.2); CARBON DIOXIDE 40 mmol/L (22-29); CHLORIDE 96 mmol/L (98-107); CREATININE, SERUM 0.52 mg/dL (0.57-1.11); EST GLOMERULAR FILTRATION RATE > 60 ML/MIN (60-); GLUCOSE 105 mg/dL (74-118); POTASSIUM 4.2 mmol/L (3.5-5.1); SODIUM 141 mmol/L (136-145)
[2020-02-29 07:31] VITALS: BP 101/69
[2020-02-29 08:13] VITALS: BP 101/69
[2020-02-29] MEDS: FLUTICASONE/SALMETEROL 115/21 12 GM AERO IH SCH (08:25)
[2020-02-29] MEDS: PANTOPRAZOLE SOD 40 MG TABEC PO SCH (08:42)
[2020-02-29] MEDS: BALSAM PERU/CASTOR OIL 60 GM OINT...G. TP SCH (08:45)
[2020-02-29] MEDS: SERTRALINE HCL 50 MG TAB PO SCH ×2 (08:46→16:16)
[2020-02-29] MEDS ORDERED: ONDANSETRON HCL 4 MG ORAL DISINTEGRATING TAB PO PRN (09:00)
[2020-02-29] MEDS: VANCOMYCIN 1GM/NS 250 ML 250 ML IV SCH (09:31)
[2020-02-29 11:36] VITALS: BP 110/74
[2020-02-29 15:28] VITALS: BP 99/65
== END 2020-02-29 18:14 | disposition home health service (06) | DRG 871 ==
LOC: ER 10:49 → ERHOLD 14:55 → MED/SURG3 02-22 19:25 → ERHOLD 02-22 19:25 → MED/SURG 02-26 17:24
PROVIDERS: ADMIT Family Medicine; ATTEND Family Medicine
PROC: 02HV33Z Insertion of Infusion Device into Superior Vena Cava, Percutaneous Approach (ICD-10-PCS; principal; 2020-02-21)
DX: A41.9 Sepsis, unspecified organism (principal); J15.9 Unspecified bacterial pneumonia; J69.0 Pneumonitis due to inhalation of food and vomit; R65.21 Severe sepsis with septic shock; I50.33 Acute on chronic diastolic (congestive) heart failure; J96.22 Acute and chronic respiratory failure with hypercapnia; J96.21 Acute and chronic respiratory failure with hypoxia; G92 Toxic encephalopathy; E87.2 Acidosis; J44.0 Chronic obstructive pulmonary disease with (acute) lower respiratory infection; D64.9 Anemia, unspecified; I11.0 Hypertensive heart disease with heart failure; I35.0 Nonrheumatic aortic (valve) stenosis; E87.6 Hypokalemia; Z20.822 Contact with and (suspected) exposure to COVID-19; Z85.72 Personal history of non-Hodgkin lymphomas
CPT/HCPCS: 36415; 36555; 36600; 51700; 71045; 74230; 80048; 80053; 80198; 80202; 81001; 82805; 83605; 83735; 83880; 84484; 85025; 85610; 87040; 87086; 87400; 93005; 93306; 94640; 94660; 99251; 99284; J0692; J1100; J1630; J1650; J1940; J2543; J2930; J3370; J3480; J7030; J7050; J7120; J7121; U0002